=== PATIENT | male | born 1955 | race Caucasian/White ===

== ENCOUNTER → 2016-08-09 | Outpatient (CLI) | payer BC ==
[2016-08-09 07:58] LABS: BASO % 0.6 % (0.0-1.0); EOS # 0.2 K/mm3 (0.0-0.50); EOS % 3.7 % (0.0-3.0); LARGE UNSTAINED CELL # 0.2 K/mm3 (0.0-0.4); LARGE UNSTAINED CELL % 2.6 % (0.0-4.0); LYMPH # 1.1 K/mm3 (1.5-4.5); LYMPH % 18.6 % (24.0-44.0); MEAN CORPUSCULAR HEMOGLOBIN 31.6 pg (27.0-33.0); MEAN CORPUSCULAR HGB CONC 34.9 g/dl (32.0-36.5); MEAN CORPUSCULAR VOLUME 90.5 fl (80.0-96.0); MONO # 0.4 K/mm3 (0.0-0.8); MONO % 6.3 % (0.0-5.0); NEUTROPHILS # 3.9 K/mm3 (1.8-7.7); NEUTROPHILS % 68.2 % (36.0-66.0); PLATELET COUNT, AUTOMATED 201 k/mm3 (150-450); RED CELL DISTRIBUTION WIDTH 13.1 % (11.5-14.5); WHITE BLOOD COUNT 5.7 K/mm3 (4.0-10.0)
[2016-08-09 08:24] LABS: ALBUMIN 3.8 GM/DL (3.2-5.2); ALBUMIN/GLOBULIN RATIO 1.31 (1.00-1.93); ALKALINE PHOSPHATASE 61 U/L (45-117); ALT/SGPT 41 U/L (12-78); ANION GAP 7 MEQ/L (8-16); AST/SGOT 27 U/L (15-37); BILIRUBIN,TOTAL 1.4 MG/DL (0.2-1.0); BLOOD UREA NITROGEN 16 MG/DL (7-18); CALCIUM LEVEL 8.3 MG/DL (8.5-10.1); CARBON DIOXIDE LEVEL 29 MEQ/L (21-32); CHLORIDE LEVEL 104 MEQ/L (98-107); CHOLESTEROL LEVEL 145 MG/DL (<200); CREATININE FOR GFR 0.94 MG/DL (0.70-1.30); GLOMERULAR FILTRATION RATE > 60.0 (>56); GLUCOSE, FASTING 115 MG/DL (70-105); POTASSIUM SERUM 4.4 MEQ/L (3.5-5.1); SODIUM LEVEL 140 MEQ/L (136-145); TOTAL PROTEIN 6.7 GM/DL (6.4-8.2); TRIGLYCERIDES LEVEL 64 MG/DL (<150)
== END ==
LOC: M LAB 08:00
PROVIDERS: ATTEND Internal Medicine
DX: Z00.00 Encounter for general adult medical examination without abnormal findings (principal); E78.00 Pure hypercholesterolemia, unspecified

== ENCOUNTER → 2017-11-18 | Outpatient (CLI) | payer BC ==
[2017-11-18 09:22] LABS: BASO % 0.6 % (0.0-1.0); EOS # 0.3 10^3/uL (0.0-0.50); EOS % 4.7 % (0.0-3.0); HEMATOCRIT 43.5 % (42.0-52.0); HEMOGLOBIN 15.1 g/dl (13.5-17.5); IMMATURE GRANULOCYTE % 0.5 % (0-3.0); LYMPH # 1.3 10^3/uL (1.5-4.5); LYMPH % 19.9 % (24.0-44.0); MEAN CORPUSCULAR HEMOGLOBIN 31.1 pg (27.0-33.0); MEAN CORPUSCULAR HGB CONC 34.7 g/dl (32.0-36.5); MEAN CORPUSCULAR VOLUME 89.7 fl (80.0-96.0); MONO # 0.5 10^3/uL (0.0-0.8); MONO % 7.8 % (0.0-5.0); NEUTROPHILS # 4.2 10^3/uL (1.8-7.7); NEUTROPHILS % 66.5 % (36.0-66.0); PLATELET COUNT, AUTOMATED 207 10^3/uL (150-450); RED BLOOD COUNT 4.85 10^6/uL (4.30-6.10); WHITE BLOOD COUNT 6.4 10^3/uL (4.0-10.0)
[2017-11-18 09:44] LABS: ALBUMIN 3.8 GM/DL (3.2-5.2); ALBUMIN/GLOBULIN RATIO 1.19 (1.00-1.93); ALKALINE PHOSPHATASE 58 U/L (45-117); ALT/SGPT 38 U/L (12-78); ANION GAP 7 MEQ/L (8-16); AST/SGOT 26 U/L (7-37); BILIRUBIN,TOTAL 1.1 MG/DL (0.2-1.0); BLOOD UREA NITROGEN 16 MG/DL (7-18); CALCIUM LEVEL 8.3 MG/DL (8.8-10.2); CARBON DIOXIDE LEVEL 29 MEQ/L (21-32); CHLORIDE LEVEL 106 MEQ/L (98-107); CREATININE FOR GFR 0.92 MG/DL (0.70-1.30); GLOMERULAR FILTRATION RATE > 60.0 (>49); GLUCOSE, FASTING 106 MG/DL (70-100); POTASSIUM SERUM 4.6 MEQ/L (3.5-5.1); SODIUM LEVEL 142 MEQ/L (136-145)
[2017-11-18 10:15] LABS: ESTIMATED AVERAGE GLUCOSE 103 MG/DL (60-110); HEMOGLOBIN A1c 5.2 %
[2017-11-19 08:06] LABS: PSA ULTRASENSITIVE <0.006 ng/mL (0.000-4.000)
== END ==
LOC: M LAB 07:45
DX: Z00.00 Encounter for general adult medical examination without abnormal findings (principal); R73.09 Other abnormal glucose; Z85.46 Personal history of malignant neoplasm of prostate
CPT/HCPCS: 80053

== ENCOUNTER → 2017-12-23 | Outpatient (CLI) | payer BC ==
[2017-12-23 16:48] LABS: HEPATITIS C VIRUS ABY INDEX < 0.0 INDEX (<0.8)
== END ==
LOC: M LAB 15:09
DX: Z11.59 Encounter for screening for other viral diseases (principal)
CPT/HCPCS: 86803

== ENCOUNTER → 2018-12-19 | Outpatient (CLI) | payer BC ==
[2018-12-19 08:27] LABS: BASO % 0.6 % (0.0-1.0); EOS # 0.2 10^3/uL (0.0-0.50); EOS % 3.7 % (0.0-3.0); HEMATOCRIT 45.5 % (42.0-52.0); HEMOGLOBIN 15.9 g/dl (13.5-17.5); MEAN CORPUSCULAR HEMOGLOBIN 32.1 pg (27.0-33.0); MEAN CORPUSCULAR HGB CONC 34.9 g/dl (32.0-36.5); MEAN CORPUSCULAR VOLUME 91.7 fl (80.0-96.0); MONO # 0.5 10^3/uL (0.0-0.8); MONO % 7.8 % (0.0-5.0); NEUTROPHILS # 4.6 10^3/uL (1.8-7.7); NEUTROPHILS % 71.3 % (36.0-66.0); PLATELET COUNT, AUTOMATED 215 10^3/uL (150-450); RED BLOOD COUNT 4.96 10^6/uL (4.30-6.10); WHITE BLOOD COUNT 6.5 10^3/uL (4.0-10.0)
[2018-12-19 09:01] LABS: ALT/SGPT 48 U/L (12-78); BILIRUBIN,TOTAL 0.8 MG/DL (0.2-1.0); BLOOD UREA NITROGEN 15 MG/DL (7-18); CALCIUM LEVEL 9.1 MG/DL (8.8-10.2); CARBON DIOXIDE LEVEL 30 MEQ/L (21-32); CHLORIDE LEVEL 105 MEQ/L (98-107); CHOLESTEROL LEVEL 177 MG/DL (<200); CREATININE FOR GFR 0.93 MG/DL (0.70-1.30); GLOMERULAR FILTRATION RATE > 60.0 (>49); GLUCOSE, FASTING 117 MG/DL (70-100); HDL CHOLESTEROL 51 MG/DL (>40); LDL CHOLESTEROL 112 MG/DL (<100); NON-HDL-C 126 MG/DL; POTASSIUM SERUM 4.7 MEQ/L (3.5-5.1); SODIUM LEVEL 139 MEQ/L (136-145); TOTAL PROTEIN 7.3 GM/DL (6.4-8.2); TRIGLYCERIDES LEVEL 71 MG/DL (<150)
[2018-12-19 12:31] LABS: FREE T4 0.82 NG/DL (0.76-1.46)
== END ==
LOC: M LAB 07:51
PROVIDERS: ATTEND Internal Medicine
DX: Z00.00 Encounter for general adult medical examination without abnormal findings (principal); E78.00 Pure hypercholesterolemia, unspecified; Z85.46 Personal history of malignant neoplasm of prostate; E03.9 Hypothyroidism, unspecified

== ENCOUNTER → 2019-07-27 | Outpatient (REF) | payer BC | LOC: M LAB REF 16:15 | PROVIDERS: ATTEND Dermatology | DX: D49.2 Neoplasm of unspecified behavior of bone, soft tissue, and skin (principal) ==

== ENCOUNTER 2020-07-13 13:19 | Observation (INO) | payer BC ==
[~2020-07-13] VITALS: Ht 175.3 cm; Wt 113.8 kg
[2020-07-13] MEDS ORDERED: CIAL5TAB PO ×2 (13:28)
[2020-07-13 13:45] LABS: BASO # 0.1 10^3/uL (0.0-0.2); BASO % 0.6 % (0.0-1.0); EOS # 0.3 10^3/uL (0.0-0.5); EOS % 2.8 % (0.0-3.0); HEMATOCRIT 51.4 % (42.0-52.0); HEMOGLOBIN 17.6 g/dl (13.5-17.5); LYMPH % 20.1 % (24.0-44.0); MEAN CORPUSCULAR HEMOGLOBIN 31.8 pg (27.0-33.0); MEAN CORPUSCULAR HGB CONC 34.2 g/dl (32.0-36.5); MEAN CORPUSCULAR VOLUME 92.9 fl (80.0-96.0); MONO % 10.3 % (0.0-5.0); NEUTROPHILS # 6.6 10^3/uL (1.5-8.5); NEUTROPHILS % 65.7 % (36.0-66.0); PLATELET COUNT, AUTOMATED 250 10^3/uL (150-450); RED BLOOD COUNT 5.53 10^6/uL (4.30-6.10)
[2020-07-13] MEDS: METOPROLOL 5 MG/5 ML VIAL IV SCH ×3 (13:45→14:07)
[2020-07-13 13:57] LABS: INR 0.99; PROTHROMBIN TIME 13.3 SECONDS (12.5-14.3)
--- NOTE | 2020-07-13 14:13 | REP ---
INDICATION: CHEST PAIN. COMPARISON: None. TECHNIQUE: SINGLE PORTABLE AP VIEW OF THE CHEST WAS PERFORMED. FINDINGS: THERE IS NO ACUTE INFILTRATE OR PULMONARY EDEMA. LUNGS ARE CLEAR. HEART IS NOT SIGNIFICANTLY ENLARGED. MEDIASTINAL SILHOUETTE IS UNREMARKABLE. THE VISUALIZED OSSEOUS STRUCTURES ARE INTACT. IMPRESSION: NO ACUTE PULMONARY DISEASE. <Electronically signed by Demetrio Peterson > 07/13/20 1919
[2020-07-13] MEDS ORDERED: atenoloL 50 MG TAB PO ONE (14:15)
[2020-07-13] MEDS ORDERED: APIXABAN 5 MG TAB (ELIQUIS) PO ONE (14:15)
[2020-07-13 14:16] VITALS: BP 152/90
[2020-07-13 14:20] LABS: BILIRUBIN,DIRECT 0.4 MG/DL (0.0-0.2); BILIRUBIN,TOTAL 1.4 MG/DL (0.2-1.0); FREE T4 0.88 NG/DL (0.76-1.46); THYROID STIMULATING HORMONE 5.04 uIU/ML (0.358-3.740); TOTAL PROTEIN 7.6 GM/DL (6.4-8.2)
[2020-07-13] MEDS ORDERED: NS 500 ML IV ONE (17:00)
--- NOTE | 2020-07-13 17:11 | ECGEPIP ---
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
[2020-07-13] MEDS ORDERED: ELIQ5TAB PO (18:20)
[2020-07-13] MEDS ORDERED: ATEN50TA2 PO (18:21)
[2020-07-13] MEDS ORDERED: IBUP80TA PO (19:17)
[2020-07-13 20:08] LABS: RSV AMPLIFICATION NEGATIVE (NEGATIVE)
[2020-07-13] MEDS ORDERED: MAALOX 30 ML SUSP *UDC PO PRN (20:30)
[2020-07-13] MEDS ORDERED: ACETAMINOPHEN TAB 650MG DOSE (2X325MG) PO PRN (20:30)
--- NOTE | 2020-07-13 20:39 | HPEPDOC ---
General Date of Admission Date of Service: Jul 13, 2020 Primary Care Physician: Jr Johnson Collins Attending Physician: Curly Juárez MD Chief Complaint The patient is a 64-year-old male admitted with a reason for visit of Palpitations. Source: Patient Exam Limitations: No limitations History of Present Illness Mr. Darby has been feeling well recently. At about 4 AM today he woke and noticed palpitations. Throughout the morning he had a vague discomfort in his chest, but doesn't describe it as chest pain. He watched pentecostalism online in the late morning and then felt that he was tired and if he needed to rest, which is unusual for him. When he laid down he felt uncomfortable and disorientation almost pounding sensation in his head. At that point he decided he needed to come to the emergency department for further care. In the emergency department he was found to be in afib with RVR with a heart rate in the [id number]. His rate was controlled with a total of 12.5 mg of Lopressor IV. He was started on atenolol 50 mg once daily. At that point in time the plan was for him to be discharged with short outpatient follow-up with cardiology. A repeat troponin and EKG were done. The troponin remained negative, however, the repeat EKG showed inverted T waves in leads V5 and 6 when compared to the one done just hours earlier. As a result of this change, the decision was made to admit him for observation, continue telemetry, complete anticoagulation, and follow a third troponin. Dr. Elam should be by to see him in the morning. Home Medications Scheduled Tadalafil (Cialis) 5 Mg Tablet, 5 MG PO 3XW, (Reported) MON,WED,FRI Scheduled PRN Ibuprofen (Ibuprofen) 800 Mg Tablet, 800 MG PO Q6H PRN for PAIN, (Reported) Allergies Coded Allergies: Penicillins (Verified Allergy, Unknown, 07/13/20) Past Medical History Medical History h/o prostate cancer (2009) Surgical History Orthopedic repair of tibia-fibula, right elbow, and rodding of femur (1972) Vasectomy (1991) Robotic prostatectomy (2009) Family History His father at 78 years old but not much is known about his history. His mother at 64 years old of lung cancer. He has one brother who recently had a CVA. Has 3 sisters one of whom has had breast cancer and two who have diabetes. He has 4 children - 2 sons and 2 daughters - who have no known medical problems. Social History * Smoker: former Smoker (quit around 1979) Alcohol: other (reports that he has one or 2 drinks per night) Drugs: denies He lives with his and they have all he needs on one floor. Additionally their home has an elevator if necessary to move between floors. A-FIB/CHADSVASC A-FIB History Current/History of A-Fib/PAF?: Yes Current PO Anticoag Therapy: Yes Review of Systems Constitutional: Denies: Chills, Fever Pulmonary: Denies: Dyspnea, Cough Cardiovascular: Reports: Palpitations, Lt Headedness (sense of vertigo or rocking of his head associated with palpitations), Other Symptoms (vague sense of chest discomfort); Denies: Edema Gastrointestinal: Denies: Nausea, Vomiting Neurological: Reports: Other Symptoms; Denies: Weakness, Numbness, Change in speech, Confusion Psych: Reports: Mood Normal Physical Examination General Exam: Positive: Alert, Cooperative, No Acute Distress (laying in the ER stretcher when I entered the room) Eye Exam: Positive: Conjunctiva & lids normal; Negative: Sclera icteric ENT Exam: Positive: Atraumatic, Mucous membr. moist/pink Neck Exam: Positive: Supple; Negative: Lymphadenopathy Chest Exam: Positive: Clear to auscultation, Normal air movement Heart Exam: Positive: Rate Normal, Irregular Rhythm, Normal S1, Normal S2; Negative: Murmurs, Rubs Telemetry: Positive: Atrial fibrillation Abdomen Exam: Positive: Normal bowel sounds, Soft; Negative: Tenderness, Hepatospenomegaly Extremity Exam: Negative: Edema Skin Exam: Positive: Nl turgor and temperature Neuro Exam: Positive: Normal Speech, Normal Tone Psych Exam: Positive: Mental status NL, Mood NL, Oriented x 3 Vital Signs Vital Signs Date Time Temp Pulse Resp B/P (MAP) Pulse Ox O2 Delivery O2 Flow Rate FiO2 07/13/20 19:00 84 98 07/13/20 18:45 136/71 (92) 07/13/20 13:20 98.0 18 Room Air Laboratory Data Labs 24H Laboratory Tests 2 07/13/20 13:34: Immature Granulocyte % (Auto) 0.5, Neutrophils (%) (Auto) 65.7, Lymphocytes (%) (Auto) 20.1L, Monocytes (%) (Auto) 10.3H, Eosinophils (%) (Auto) 2.8, Basophils (%) (Auto) 0.6, Neutrophils # (Auto) 6.6, Lymphocytes # (Auto) 2.0, Monocytes # (Auto) 1.0H, Eosinophils # (Auto) 0.3, Basophils # (Auto) 0.1, Nucleated Red Blood Cells % (auto) 0.0, Prothrombin Time 13.3, Prothromb Time International Ratio 0.99, Activated Partial Thromboplast Time 28.0, Total Bilirubin 1.4H, Direct Bilirubin 0.4H, Aspartate Amino Transf (AST/SGOT) 28, Alanine Aminotransferase (ALT/SGPT) 42, Alkaline Phosphatase 64, Total Protein 7.6, Albumin 4.0, Albumin/Globulin Ratio 1.1, Lipase 160, Thyroid Stimulating Hormone (TSH) 5.040H, Free Thyroxine 0.88 07/13/20 13:36: POC Glucose (Misc Panel) 116H, POC Sodium (Misc Panel) 142, POC Potassium (Misc Panel) 4.4, POC Chloride (Misc Panel) 104, POC Total CO2 (Misc Panel) 30.0H, POC Blood Urea Nitrogen (Misc Panel 24, POC Ionized Calcium (Misc Panel) 5.1, POC Creatinine (Misc Panel) 1.0, POC Hematocrit (Misc Panel) 52.0H 07/13/20 13:39: POC Troponin I (Misc) 0.03 07/13/20 16:56: Bedside Glucose (Misc Panel) 92 07/13/20 18:41: POC Troponin I (Misc) 0.03 07/13/20 19:16: Coronavirus (COVID-19)(PCR) NEGATIVE, Influenza Type A (RT-PCR) NEGATIVE, Influenza Type B (RT-PCR) NEGATIVE, Respiratory Syncytial Virus (PCR) NEGATIVE CBC/BMP Laboratory Tests 07/13/20 13:34 Problems (1) Atrial fibrillation with rapid ventricular response Status: Acute Problem Specific Plan: Monitor Clinically, Repeat Labs Problem Text: He is currently rate controlled on atenolol 50mg. The hope is that he will spontaneously convert back to sinus rhythm. Will start Eliquis 5 mg bid for anticoagulation. Dr. Elam will be in to see him tomorrow and may have some other suggestions regarding rhythm control if he hasn't converted by then. (2) Abnormal ECG Status: Acute Problem Text: He has LVH and on a repeat EKG had T-wave inversions in V5 and V6. As far as we are aware this is new. I have ordered an echocardiogram to further characterize the structural changes. (3) Sleep apnea syndrome Problem Text: He does NOT carry a diagnosis of ARTURO, however, his STOPBANG is 5 (high risk) and he has several other changes that support a dx of ARTURO including: polycythemia which could be due to chronic hypoxia, LVH without a dx of HTN, and new onset atrial fibrillation. I think that we should work him up for this either here or when he is discharged. (4) Polycythemia Problem Text: This is a new finding and higher than his usual baseline Hb of 15. I suspect is is 2/2 hypoxemia from undiagnosed ARTURO, but if this is not the case, then this may need further evaluation too. I will defer any hematologic evaluation until after the ARTURO question is answered. (5) Elevated bilirubin Status: Chronic Problem Text: This seems to be a longstanding issue with a baseline tbili around 1.3. He was unaware that his bilirubin runs high. It is likely something benign like Gilbert's syndrome, but I recommended he bring it up with his physi gerald when he sees him for the hospital follow-up. Plan / VTE VTE Prophylaxis Ordered?: Yes (Eliquis) Plan Advanced Directives: Health Care Proxy (HCP) (he verbally identifies his , Mariah Ng , as his alternate medical decision-maker if he was unable to make his own medical decisions) Curly Juárez MD Jul 13, 2020 20:39
[2020-07-13 21:20] VITALS: BP 131/84
[2020-07-13] MEDS: APIXABAN 2.5 MG TAB (ELIQUIS) PO SCH (21:41)
[2020-07-14] VITALS: BP 117/61
[2020-07-14 04:00] VITALS: BP 125/58
[2020-07-14 04:26] LABS: HEMATOCRIT 46.7 % (42.0-52.0); HEMOGLOBIN 15.7 g/dl (13.5-17.5); MEAN CORPUSCULAR HEMOGLOBIN 31.3 pg (27.0-33.0); MEAN CORPUSCULAR HGB CONC 33.6 g/dl (32.0-36.5); PLATELET COUNT, AUTOMATED 235 10^3/uL (150-450); RED BLOOD COUNT 5.02 10^6/uL (4.30-6.10); WHITE BLOOD COUNT 10.7 10^3/uL (4.0-10.0)
[2020-07-14 05:06] LABS: ALBUMIN 3.4 GM/DL (3.2-5.2); ALT/SGPT 34 U/L (12-78); BILIRUBIN,TOTAL 1.1 MG/DL (0.2-1.0); BLOOD UREA NITROGEN 21 MG/DL (7-18); CALCIUM LEVEL 8.7 MG/DL (8.8-10.2); CARBON DIOXIDE LEVEL 28 MEQ/L (21-32); CHLORIDE LEVEL 107 MEQ/L (98-107); CREATININE FOR GFR 1.02 MG/DL (0.70-1.30); GLOMERULAR FILTRATION RATE > 60.0 (>49); GLUCOSE, FASTING 101 MG/DL (70-100); SODIUM LEVEL 140 MEQ/L (136-145); TOTAL PROTEIN 6.5 GM/DL (6.4-8.2); TROPONIN I 0.02 NG/ML (< 0.10)
[2020-07-14 07:41] VITALS: BP 147/74
[2020-07-14] MEDS ORDERED: ELIQ2.5T PO (08:40)
[2020-07-14] MEDS ORDERED: ATEN25TA PO ×2 (08:40→09:08)
[2020-07-14] MEDS ORDERED: atenoloL 25 MG TAB PO SCH (09:00)
[2020-07-14] MEDS: APIXABAN 2.5 MG TAB (ELIQUIS) PO SCH (09:49)
--- NOTE | 2020-07-14 11:15 | CR ---
CONSULTATION DATE: 07/14/2020 REFERRING PHYSICIAN: Curly Juárez M.D. PRINCIPAL COMPLAINT: Atrial fibrillation. HISTORY OF PRESENT ILLNESS: is a 64-year-old man who presented to [facility] ER yesterday afternoon with sensation of palpitations and poorly described chest discomfort. The sensation started approximately 4 a.m. He was woken up from sleep and felt that his left upper sternum felt a little unusual. He says that he would not describe the sensation of a pain or palpitations. He did not pay too much attention and went back to bed and was able to fall asleep but when he woke up around 6 a.m., he still had a mild sensation of discomfort that lingered throughout the morning and eventually he felt extremely tired and laid down and as he lay down, he felt a pulsating sensation in his neck and head and decided to come to emergency room for further evaluation. He was found to be in atrial fibrillation with ventricular rate reaching up to 150 beats per minute. There were nonspecific repolarization abnormalities suggestive of LVH. He was given a total of 15 mg of IV metoprolol and 50 mg of oral atenolol that led to marked improvement in his heart rate and he eventually converted to sinus rhythm around 10:30 yesterday evening and has remained in mostly sinus bradycardia since. He says that during the day yesterday each time when his heart rate accelerated, he felt a mild sensation in his left upper chest as the night before but has not had any problems since his cardioversion. He is feeling well this morning. He has had already several EKGs. The initial one was described above but follow-up EKGs revealed evidence for new T wave inversions in lead V4 to V6 together with some minimal elevation in precordial leads and eventually this morning, the T wave inversions are quite prominent. An echocardiogram performed at bedside reveals preserved left ventricular systolic function with moderate left ventricular hypertrophy and no significant valvular disease. PAST MEDICAL HISTORY: 1. History of prostate cancer in 2009, status post prostatectomy. 2. The patient denies history of diabetes, dyslipidemia or arterial hypertension. SURGICAL HISTORY: Positive for vasectomy, robotic prostatectomy and femoral, tibial and elbow repair in distant past. FAMILY HISTORY: The patient denies any history of coronary artery disease or congestive heart failure in first degree relatives. His older brother apparently recently suffered stroke but he does not have any detailed information. SOCIAL HISTORY: The patient is . He is father of four. 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 He has a very remote history of brief smoking and he typically has a couple drinks a night. REVIEW OF SYSTEMS: There is no history of recent headache, fever, chills, nausea, vomiting or diarrhea. He does report that he had COVID vaccination approximately 10 days ago and he may have noted similar sensation of palpitations briefly since on a couple occasions. No history of chest pain. At his baseline, he is quite active and in general reports good exertional tolerance. PHYSICAL EXAMINATION: Mr. Ng is a 64-year-old man who appears approximately his age sitting in a chair in no distress, pleasant, oriented, provides good history. Vital signs this morning: Blood pressure 147/74, afebrile, saturation 95% on room air, heart rate in the 50s and 60s. It was in the low 60s when I saw him. Weight was recorded at 114 kilograms. He is alert and oriented, appropriate. His JVP is not high, no carotid bruit. Lungs are clear. Heart exam reveals regular rhythm without gallops, murmur or rub. Abdomen is obese but soft. Extremities are free of edema. Peripheral pulses are of good quality. LABORATORY DATA: As of this morning, CBC is essentially normal. Basic metabolic panel is also normal but for fasting glucose 101. He has normal liver function test and TSH was 5.0. EKGs: As per history of present illness. Chest x-ray reveals a borderline cardiomegaly but otherwise is unremarkable. ASSESSMENT AND PLAN: Mr. Ng is a 64-year-old man without significant past medical history who presented with atrial fibrillation with rapid ventricular response and spontaneously converted to sinus rhythm approximately 16 hours after onset of atrial fibrillation. He has been in sinus rhythm since. There is no obvious trigger. Even though he had some alcohol, it was not very much and he has had steady alcohol consumption in the similar range for a long time. He also may have underlying ARTURO and we will pursue evaluation in that regard. The most worrisome finding is the abnormality on EKG and left ventricular hypertrophy. Surprisingly, he does not carry a history of hypertension. He also does not carry any family history of cardiovascular disease. We will have to evaluate him for underlying CAD and I plan to pursue a nuclear stress test later this week. I will also make referral to evaluate for ARTURO but currently I believe he is safe to be discharged home. His cardiac enzymes remain negative and he ambulates without difficulty. I do not believe there is any reason to keep him in the hospital any longer. I suggested that he takes a couple days off which he believes that he can do. Otherwise, I do not have any obvious restrictions but I also recommended that he avoids alcohol for the near future and I would also recommend anticoagulation at least for a couple three months. Thomas Johnson M.D.
--- NOTE | 2020-07-14 11:15 | CR ---
CONSULTATION DATE: 07/14/2020 REASON FOR CONSULTATION: I was asked by Dr. Elam to attend Mr. Ng. He was admitted yesterday with atrial fibrillation with RVR new onset. HISTORY OF PRESENT ILLNESS: Further history taken reveals that he quite likely has obstructive sleep apnea syndrome and we are asked to become involved in his care. He is currently in normal sinus rhythm after converting. He is feeling much better. He reports a very long history of snoring with irregular patterns noticed by his . He denies any excessive daytime somnolence or fatigue. No clear-cut hypnagogic/hypnopompic hallucinations, sleep paralysis, or cataplexy. ALLERGIES: Listed as PENICILLINS. MEDICATIONS AT HOME: Cialis with p.r.n. Ibuprofen. PAST MEDICAL HISTORY: Significant for history of prostate cancer 2009. SURGICAL HISTORY: Robotic prostatectomy, vasectomy, and orthopedic repair of a femur fracture in the . SOCIAL HISTORY: Lives and works here in the [facility]. Remote tobacco. Social alcohol at best. Lives at home with supportive . FAMILY HISTORY: Father in his 70s. Mother in her 60s of lung cancer. Brother with atherosclerotic cerebrovascular disease, a sister with breast cancer, also sister with diabetes. REVIEW OF SYSTEMS: Constitutional negative for recent fevers or chills. HEENT unremarkable for double or blurry vision. Pulmonary is unremarkable for any asthma or obstructive lung disease. Cardiac significant for atrial fibrillation with RVR. Hematologic unremarkable for bruising or bleeding. Dermatologic unremarkable for rashes. Musculoskeletal unremarkable for any new arthralgias, myalgias. Endocrine unremarkable for diabetes, thyroid disease. He does have a history of prostatectomy. Psychiatric unremarkable. PHYSICAL EXAMINATION: GENERAL: He is a pleasant well nourished, well developed gentleman in no distress. VITAL SIGNS: Heart rate in the 60s. Blood pressure 148 systolic, respiratory rate 18 and unlabored. He is afebrile. HEENT: Otherwise normocephalic, atraumatic. Pupils react. Neck is supple without any obvious adenopathy. No obvious JVD. Airway is not seen due to his mask. Trachea is in the midline. CHEST: Clear to both auscultation and percussion. No retraction noted. No focal adventitious breath sounds are identified. Tactile fremitus palpable throughout. CARDIAC EXAM: Regular with no murmur or gallop. Peripheral pulses are palpable, no edema. ABDOMEN: Soft with active bowel sounds. EXTREMITIES: No cyanosis or clubbing. NEUROLOGIC: Neurologically he is awake, alert, and appropriate. PSYCHIATRIC: He has a normal mood and affect. Pulse oximetry 95% on room air. IMPRESSION: 1. Snoring. 2. Atrial fibrillation with rapid ventricular response (RVR). 3. History of prostate cancer. RECOMMENDATIONS: At this point he quite likely has underlying obstructive sleep apnea syndrome. We had a long discussion regarding goals of therapy, the workup and how this is treated. He conveys understanding. If able to be done through insurance, he would prefer home testing on an auto-titratable device and I believe this able to be done for him and we will pursue that as soon as possible. He will be followed for this in the outpatient setting. MARIO
--- NOTE | 2020-07-14 15:42 | DS.PDOC ---
Discharge Summary General Date of Admission Jul 13, 2020 at 20:52 Date of Discharge 07/14/20 Specialist/Consultants Involve cardiology, pulmonology Discharge Summary PROCEDURES PERFORMED DURING STAY: [None]. ADMITTING DIAGNOSES: #afib with RVR DISCHARGE DIAGNOSES: #afib/RVR - converted to NSR #abnormal ECG #possible ARTURO SECONDARY DIAGNOSES #prostate CA s/p robotic prostatectomy, vasectomy #femoral fracture s/p repair COMPLICATIONS/CHIEF COMPLAINT: Atrial Fibrillation With Rvr. HPI/Hospital Course: 64-year-old male who presents to [facility] in the afternoon for sensation of palpitations and chest discomfort. He states he woke up at around 4 AM because of palpitations and his chest discomfort. He states the night before was a typical evening for him. He went back to sleep, waking up again a few hours later with the same sensation of discomfort in his chest. He attended an [place] service and as the day progressed, his chest discomfort continued, prompting him to present to the emergency department. In the ED he was found to be in atrial fibrillation with rapid ventricular rate. He continued to experience chest discomfort with palpitations. He was given 15 mg of IV metoprolol and 50 mg of oral atenolol with excellent response, eventually converting back to sinus rhythm in the late evening. Since then he has been essentially sinus bradycardia. Several EKGs were obtained showing new T-wave inversions in lead V4 to V6 with minimal elevations in the precordial leads. An echocardiogram was obtained showing moderate left ventricular hypertro phy. He was seen in consultation by cardiology and pulmonology on extensive discussion with cardiology, he was deemed safe for discharge home with outpatient follow-up. He is being provided with atenolol, that can be taken as needed as per any sensations of palpitations, elevated blood pressure and tachycardia. He is planned to have a nuclear stress test done this Tuesday with Dr. Elam. He has been set up for a home sleep study test [facility]. He was advised to rest for at least the next couple of days. While he was receiving his discharge instructions, he had 4 beats of VT, and remained asymptomatic, with stable vital signs. His electrolytes were checked and were within normal limits. He was encouraged to ambulate, and no further abnormalities were seen on telemetry. Discussed with cardiology. Discussed with his PCP as well. DISCHARGE MEDICATIONS: Please see below. ALLERGIES: Please see below. PHYSICAL EXAMINATION ON DISCHARGE: VITAL SIGNS: Please see below. GENERAL: pleasant, NAD, sitting comfortably in chair HEENT: NC/AT, EOMI Lungs: CTA B/L Heart: +S1S2, RRR Ext: no edema LABORATORY DATA: Please see below. ACTIVITY: [As tolerated]. DISPOSITION: 01 Home, Self-Care. DISCHARGE INSTRUCTIONS: 1. PCP in 3-5 days 2. Cardiology as scheduled 07/18/20 3. Pulmonology for results of sleep study 4. Rest for at least 2-3 days. 5. Medications as directed. DISCHARGE CONDITION: [Stable]. TIME SPENT ON DISCHARGE: 35 minutes. Vital Signs/I&Os Vital Signs Date Time Temp Pulse Resp B/P (MAP) Pulse Ox O2 Delivery O2 Flow Rate FiO2 07/14/20 07:41 97.9 65 18 147/74 (98) 95 Room Air I&O- Last 24 Hours up to 6 AM 07/14/20 06:00 Intake Total 850 ml Output Total 0 ml Balance 850 ml Laboratory Data Labs 24H Laboratory Tests 2 07/13/20 16:56: Bedside Glucose (Misc Panel) 92 07/13/20 18:41: POC Troponin I (Misc) 0.03 07/13/20 19:16: Coronavirus (COVID-19)(PCR) NEGATIVE, Influenza Type A (RT-PCR) NEGATIVE, Influenza Type B (RT-PCR) NEGATIVE, Respiratory Syncytial Virus (PCR) NEGATIVE 07/14/20 03:53: Nucleated Red Blood Cells % (auto) 0.0, Anion Gap 5L, Glomerular Filtration Rate > 60.0, Calcium Level 8.7L, Magnesium Level 2.0, Total Bilirubin 1.1H, Aspartate Amino Transf (AST/SGOT) 21, Alanine Aminotransferase (ALT/SGPT) 34, Alkaline Phosphatase 56, Troponin I 0.02, Total Protein 6.5, Albumin 3.4, Albumin/Globulin Ratio 1.1 CBC/BMP Laboratory Tests 07/14/20 03:53 FSBS Laboratory Tests Test 07/13/20 16:56 Range/Units Bedside Glucose (Misc Panel) 92 80-115 MG/DL Discharge Medications Scheduled Apixaban (Eliquis) 2.5 Mg Tablet, 5 MG PO BID Atenolol (Atenolol) 25 Mg Tablet, 50 MG PO DAILY Take 1-2 tablets, as discussed, once daily, as needed for elevated blood pressure, palpitations, tachycardia. Tadalafil (Cialis) 5 Mg Tablet, 5 MG PO 3XW, (Reported) TUE,TUE,TUE Allergies Coded Allergies: Penicillins (Verified Allergy, Unknown, 07/13/20) THERESE ARMENDARIZ MD Jul 14, 2020 15:42
--- NOTE | 2020-07-15 07:49 | ECGEPIP ---
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
--- NOTE | 2020-07-15 07:54 | ECGEPIP ---
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
--- NOTE | 2020-07-15 08:39 | ECGEPIP ---
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
--- NOTE | 2020-07-15 14:49 | ECHO ---
DATE OF PROCEDURE: 07/14/2020 Age: 64 Gender: Male Height: 175 cm Weight: 114 kg REFERRING PHYSICIAN: Dr. Curly Juárez. INDICATION: Atrial fibrillation, abnormal EKG. MEASUREMENTS: IVS 1.5 cm LV 5.4 cm LVPW 1.3 cm LA 4.4 cm Aorta 2.9 cm RV 3.3 cm IVC 1.7 cm Mitral E wave velocity 68 A wave 42 E prime septal 6.4 E prime lateral 5.1 FINDINGS: This study is of acceptable technical quality. Underlying sinus rhythm. Left ventricle is a normal size. Moderate left ventricular hypertrophy is noted. Overall estimated LVEF approximately 65-70%, I do not appreciate any segmental wall motion abnormality. Right ventricle is also normal size and systolic function. Left atrium is mildly enlarged. Right atrium appears normal. All four cardiac valves were well seen and appear normal. No pericardial effusion is noted. Inferior vena cava is a normal size and appropriately collapses with inspiration indicative of normal central venous pressure. Aortic root, aortic arch, and visualized segment of abdominal aorta all appear normal. Doppler interrogation reveals competent all four cardiac valves without significant stenosis or insufficiency. Mitral inflow patter on tissue Doppler imaging of mitral annulus revealed grade 2 diastolic dysfunction. CONCLUSIONS: 1. Study is of acceptable technical quality, underlying sinus rhythm. 2. Normal LV size with moderate left ventricular hypertrophy, estimated LVEF 65-70% and grade 2 diastolic dysfunction. 3. No significant valvular disease. 4. Normal central venous pressure. 5. Unable to estimate pulmonary artery pressure but no signs to suggest pulmonary hypertension. COMMENT: Overall study most consistent with hypertensive heart disease. MTDD
== END 2020-07-14 12:06 | disposition home or self-care (01) ==
LOC: M ED 13:19 → M ED INP 20:52 → ENRESERV 21:08 → M PCU 21:18
PROVIDERS: ADMIT Family Medicine; ATTEND Family Medicine
DX: I48.91 Unspecified atrial fibrillation (principal); R94.31 Abnormal electrocardiogram [ECG] [EKG]; G47.30 Sleep apnea, unspecified; Z85.46 Personal history of malignant neoplasm of prostate; Z79.01 Long term (current) use of anticoagulants; Z79.899 Other long term (current) drug therapy; Z88.0 Allergy status to penicillin; D75.1 Secondary polycythemia; E80.7 Disorder of bilirubin metabolism, unspecified; Z87.891 Personal history of nicotine dependence

== ENCOUNTER → 2020-07-15 | Outpatient (CLI) | payer BC ==
[~2020-07-15] MED LIST: ATEN25TA PO; ATEN50TA2 PO; CIAL5TAB PO; ELIQ2.5T PO; ELIQ5TAB PO; IBUP80TA PO
--- NOTE | 2020-07-16 12:56 | SLEEPHOME ---
DATE: 07/14/2020 ORDERED BY: Dr. Witt Diagnostic home sleep testing was performed due to concern for the obstructive sleep apnea syndrome in this patient with snoring and nonrestorative sleep. For testing, a nocturnal T3 respiratory monitoring device was used. Continuous record was made of pulse, oxygen saturation, air flow, chest and abdominal strain, and body position. There was 9 hours and 59 minutes of data reviewed. There was 7 hours and 2 minutes marked as time in bed. During the interval marked time in bed, there were 470 respiratory events identified of 10 seconds in duration or greater for a respiratory event index of 66.8. The events were primarily obstructive. Eighteen mixed and 19 central apneas were also noted. Baseline pulse rate was 63 beats per minute. Pulse rate ranged 50-87. Baseline saturation 93%. Saturations fell to 69%. Testing was performed in both the supine and nonsupine positions. IMPRESSION: Abnormal home sleep testing with repetitive respiratory events and oxygen desaturations to 69% with a respiratory event index of 66.8 is consistent with the obstructive sleep apnea syndrome. RECOMMENDATION: The patient should be encouraged to undergo formal sleep evaluation. Given the frequency of mixed and central apneas in laboratory titration, a bilevel device and backup rate may be found necessary.
== END ==
LOC: M SLEEP HO 10:00
PROVIDERS: ATTEND Internal Medicine Pulmonary Disease
DX: R06.83 Snoring (principal)

== ENCOUNTER → 2020-08-09 | Outpatient (CLI) | payer BC ==
--- NOTE | 2020-08-11 14:32 | SLEEPCENT ---
NOCTURNAL POLYSOMNOGRAPHY DATE: 08/09/2020 ORDERED BY: Flako Witt M.D. Nocturnal polysomnography was performed for the titration of pressure therapy in this patient with obstructive sleep apnea syndrome confirmed by home testing, revealing respiratory event index of 66.8. For testing a ResMed AirFit F30 full face mask of medium size was used, 4 cm of water pressure were applied to the circuit, and the lights were extinguished. 7 hours and 53 minutes of data were reviewed. There were 182 minutes of sleep identified. Sleep latency was normal at 14 minutes. REM sleep was delayed at 223 minutes. Sleep architecture showed poor progression early in the study. There were two REM cycles, however, and overall sleep efficiency was 41.3%. The electrocardiogram showed a sinus rhythm with an average heart rate of 58 beats per minute; rate range 48 to 82. EEG showed normal waveforms for wake and sleep stages. Respiratory events prompted increases in CPAP pressure. Best sleep was seen late in the study on a CPAP pressure of +9. There was one episode of limb activity. Limb movement arousal index was 4. IMPRESSION: Obstructive sleep apnea syndrome (G47.33). RECOMMENDATION: Nightly use of pressure therapy 9 cm of water. Thomas Johnson Jr., M.D.
== END ==
LOC: M SLEEP 20:00
PROVIDERS: ATTEND Internal Medicine Pulmonary Disease
DX: G47.33 Obstructive sleep apnea (adult) (pediatric) (principal)

== ENCOUNTER → 2020-11-24 | Outpatient (CLI) | payer BC ==
[2020-11-24 08:51] LABS: BASO # 0.1 10^3/uL (0.0-0.2); BASO % 0.7 % (0.0-1.0); EOS # 0.3 10^3/uL (0.0-0.5); EOS % 4.8 % (0.0-3.0); HEMATOCRIT 44.1 % (42.0-52.0); HEMOGLOBIN 14.9 g/dl (13.5-17.5); LYMPH # 1.5 10^3/uL (1.5-5.0); LYMPH % 21.6 % (24.0-44.0); MEAN CORPUSCULAR HEMOGLOBIN 31.6 pg (27.0-33.0); MEAN CORPUSCULAR HGB CONC 33.8 g/dl (32.0-36.5); MEAN CORPUSCULAR VOLUME 93.4 fl (80.0-96.0); MONO # 0.7 10^3/uL (0.0-0.8); MONO % 10.5 % (2.0-8.0); NEUTROPHILS # 4.2 10^3/uL (1.5-8.5); NEUTROPHILS % 61.7 % (36.0-66.0); PLATELET COUNT, AUTOMATED 227 10^3/uL (150-450); RED BLOOD COUNT 4.72 10^6/uL (4.30-6.10); WHITE BLOOD COUNT 6.9 10^3/uL (4.0-10.0)
[2020-11-24 09:29] LABS: BLOOD UREA NITROGEN 13 MG/DL (7-18); CALCIUM LEVEL 8.8 MG/DL (8.8-10.2); CARBON DIOXIDE LEVEL 29 MEQ/L (21-32); CHLORIDE LEVEL 103 MEQ/L (98-107); FREE T4 0.92 NG/DL (0.76-1.46); GLOMERULAR FILTRATION RATE > 60.0 (>49); GLUCOSE, FASTING 105 MG/DL (70-100); POTASSIUM SERUM 4.7 MEQ/L (3.5-5.1); SODIUM LEVEL 136 MEQ/L (136-145)
== END ==
LOC: M LAB 07:40
PROVIDERS: ATTEND Internal Medicine
DX: Z00.01 Encounter for general adult medical examination with abnormal findings (principal); E03.9 Hypothyroidism, unspecified

== ENCOUNTER → 2021-01-16 | Outpatient (REF) | LOC: M EMP 15:32 | PROVIDERS: ATTEND Family Medicine | DX: Z11.52 Encounter for screening for COVID-19 (principal) ==

== ENCOUNTER → 2021-01-22 | Outpatient (REF) | LOC: M EMP 11:07 | PROVIDERS: ATTEND Family Medicine | DX: Z11.52 Encounter for screening for COVID-19 (principal) ==

== ENCOUNTER → 2021-03-16 | Outpatient (CLI) | payer BC ==
[~2021-03-16] MED LIST changes: +ASPI81TA26 PO; +LISI20TA33 PO
== END ==
LOC: M LABSMTC 10:28
PROVIDERS: ATTEND Anesthesiology
DX: Z01.818 Encounter for other preprocedural examination (principal); Z11.52 Encounter for screening for COVID-19

== ENCOUNTER 2021-03-20 08:18 | Day surgery (SDC) | payer BC ==
[~2021-03-20] VITALS: Ht 180.3 cm; Wt 108.0 kg
[~2021-03-20 08:18] MED LIST changes: +NS 1,000 ML IV ONE
--- OUTSIDE RECORDS SUMMARY | 2021-03-20 08:22 | CCD ---
Author Author [facility] Organization [facility] Address Unknown Phone Unavailable Care Team Providers Care [place] Name Role Phone Tomás Alfaro MD Unavailable Unavailable Tomás Alfaro MD Unavailable Unavailable Tomás Alfaro MD Unavailable Unavailable Tomás Alfaro MD Unavailable Unavailable Tomás Alfaro MD Unavailable Unavailable Tomás Alfaro MD Unavailable Unavailable Tomás Alfaro MD Unavailable Unavailable Tomás Alfaro MD Unavailable Unavailable Tomás Alfaro MD Unavailable Unavailable Tomás Alfaro MD Unavailable Unavailable Tomás Alfaro MD Unavailable Unavailable Tomás Alfaro MD Unavailable Unavailable Tomás Alfaro MD Unavailable Unavailable Tomás Alfaro MD Unavailable Unavailable Tomás Alfaro MD Unavailable Unavailable Tomás Alfaro MD Unavailable Unavailable Tomás Alfaro MD Unavailable Unavailable Tomás Alfaro MD Unavailable Unavailable Tomás Alfaro MD Unavailable Unavailable Tomás Alfaro MD Unavailable Unavailable Tomás Alfaro MD Unavailable Unavailable Tomás Alfaro MD Unavailable Unavailable Tomás Alfaro MD Unavailable Unavailable Tomás Alfaro MD Unavailable Unavailable Tomás Alfaro MD Unavailable Unavailable Tomás Alfaro MD Unavailable Unavailable Tomás Alfaro MD Unavailable Unavailable Tomás Alfaro MD Unavailable Unavailable Tomás Alfaro MD Unavailable Unavailable Tomás Alfaro MD Unavailable Unavailable Tomás Alfaro MD Unavailable Unavailable Tomás Alfaro MD Unavailable Unavailable Tomás Alfaro MD Unavailable Unavailable Tomás Alfaro MD Unavailable Unavailable Tomás Alfaro MD Unavailable Unavailable Tomás Alfaro MD Unavailable Unavailable Tomás Alfaro MD Unavailable Unavailable Tomás Alfaro MD Unavailable Unavailable Tomás Alfaro MD Unavailable Unavailable Tomás Alfaro MD Unavailable Unavailable Tomás Alfaro MD Unavailable Unavailable Tomás Alfaro MD Unavailable Unavailable Tomás Alfaro MD Unavailable Unavailable Tomás Alfaro MD Unavailable Unavailable Tomás Alfaro MD Unavailable Unavailable Tomás Alfaro MD Unavailable Unavailable Tomás Alfaro MD Unavailable Unavailable Tomás Alfaro MD Unavailable Unavailable Tomás Alfaro MD Unavailable Unavailable Tomás Alfaro MD Unavailable Unavailable Odin Johnson MD Unavailable Unavailable H[place]ory [place]Odin ag MD Unavailable Unavailable [place] ag MD Unavailable Unavailable AlexOdin ag MD Unavailable Unavailable AlexOdin ag MD Unavailable Unavailable AlexOdin ag MD Unavailable Unavailable AlexOdin ag MD Unavailable Unavailable AlexOdin ag MD Unavailable Unavailable AlexOdin ag MD Unavailable Unavailable AlexOdin ag MD Unavailable Unavailable Odin Johnson MD Unavailable Unavailable AlexOdin ag MD Unavailable Unavailable [place] ag MD Unavailable Unavailable Odin Johnson MD Unavailable Unavailable Odin Johnson MD Unavailable Unavailable Odin Johnson MD Unavailable Unavailable Odin Johnson MD Unavailable Unavailable Odin Johnson MD Unavailable Unavailable Odin Johnson MD Unavailable Unavailable Odin Johnson MD Unavailable Unavailable Odin Johnson MD Unavailable Unavailable [place] ag MD Unavailable Unavailable [place] ag MD Unavailable Unavailable Odin Johnson MD Unavailable Unavailable Odin Johnson MD Unavailable Unavailable Odin Johnson MD Unavailable Unavailable AlexOdin ag MD Unavailable Unavailable [place] ag MD Unavailable Unavailable AlexOdin ag MD Unavailable Unavailable [place]din MD Unavailable Unavailable [place] ag MD Unavailable Unavailable AlexOdin ag MD Unavailable Unavailable [place] ag MD Unavailable Unavailable [place] ag MD Unavailable Unavailable AlexOdin ag MD Unavailable Unavailable [place] ag MD Unavailable Unavailable [place] ag MD Unavailable Unavailable AlexOdni ag MD Unavailable Unavailable AlexOdin MD Unavailable Unavailable [place]din MD Unavailable Unavailable AlexOdin MD Unavailable Unavailable AlexOdin MD Unavailable Unavailable AlexOdin MD Unavailable Unavailable AlexOdin MD Unavailable Unavailable [place] MD Unavailable Unavailable AlexOdin MD Unavailable Unavailable [place] MD Unavailable Unavailable AlexOdin MD Unavailable Unavailable AlexOdin MD Unavailable Unavailable AlexOdin MD Unavailable Unavailable [place]din MD Unavailable Unavailable [place]Odin MD Unavailable Unavailable AlexOdin MD Unavailable Unavailable H[place]ory [place]Odin MD Unavailable Unavailable [place]Odin MD Unavailable Unavailable [place] MD Unavailable Unavailable AlexOdin MD Unavailable Unavailable AlexOdin MD Unavailable Unavailable [place]din MD Unavailable Unavailable [place] ag MD Unavailable Unavailable [place] MD Unavailable Unavailable [place] MD Unavailable Unavailable H[place]ory [place]Odin MD Unavailable Unavailable H[place]Odin MD Unavailable Unavailable [place] ag MD Unavailable Unavailable [place] ag MD Unavailable Unavailable AlexOdin ag MD Unavailable Unavailable Hickory GroveOdni MD Unavailable Unavailable [place] MD Unavailable Unavailable AlexOdin MD Unavailable Unavailable [place] MD Unavailable Unavailable AlexOdin ag MD Unavailable Unavailable [place] ag MD Unavailable Unavailable AlexOdin ag MD Unavailable Unavailable [place] ag MD Unavailable Unavailable [place] ag MD Unavailable Unavailable AlexOdin ag MD Unavailable Unavailable AlexOdin MD Unavailable Unavailable AlexOdin ag MD Unavailable Unavailable [place] ag MD Unavailable Unavailable [place] ag MD Unavailable Unavailable [place] ag MD Unavailable Unavailable [place] MD Unavailable Unavailable AlexOdin MD Unavailable Unavailable AlexOdin MD Unavailable Unavailable AlexOdin MD Unavailable Unavailable Dejuan Witt MD Unavailable Unavailable Dejuan Witt MD Unavailable Unavailable Dejuan Witt MD Unavailable Unavailable Dejuan Witt MD Unavailable Unavailable Dejuan Witt MD Unavailable Unavailable Dejuan Witt MD Unavailable Unavailable Dejuan Witt MD Unavailable Unavailable Dejuan Witt MD Unavailable Unavailable Dejuan Witt MD Unavailable Unavailable WittDejuan MD Unavailable Unavailable WittDejuan MD Unavailable Unavailable Witt, Dejuan Arriola MD Unavailable Unavailable Witt, Dejuan Arriola MD Unavailable Unavailable Witt, Dejuan Arriola MD Unavailable Unavailable Witt, Dejuan Arriola MD Unavailable Unavailable Witt, Dejuan Arriola MD Unavailable Unavailable Witt, Dejuan Arriola MD Unavailable Unavailable WittDejuan MD Unavailable Unavailable WittDejuan MD Unavailable Unavailable WittDejuan MD Unavailable Unavailable Witt, Dejuan Arriola MD Unavailable Unavailable Witt, Dejuan Arriola MD Unavailable Unavailable Witt, Dejuan Arriola MD Unavailable Unavailable Witt, Dejuan Arriola MD Unavailable Unavailable Witt, Dejuan Arriola MD Unavailable Unavailable Witt, Dejuan Arriola MD Unavailable Unavailable Witt, Dejuan Arriola MD Unavailable Unavailable WittDejuan MD Unavailable Unavailable WittDejuan MD Unavailable Unavailable Witt, Dejuan Arriola MD Unavailable Unavailable Witt, Dejuan Arriola MD Unavailable Unavailable Witt, Dejuan Arriola MD Unavailable Unavailable Witt, Dejuan Arriola MD Unavailable Unavailable Witt, Dejuan Arriola MD Unavailable Unavailable Witt, Dejuan Arriola MD Unavailable Unavailable WittDejuan MD Unavailable Unavailable WittDejuan MD Unavailable Unavailable Dejuan Witt MD Unavailable Unavailable WittDejuan MD Unavailable Unavailable WittDejuan MD Unavailable Unavailable WittDejuan MD Unavailable Unavailable WittDejuan MD Unavailable Unavailable WittDejuan MD Unavailable Unavailable WittDejuan MD Unavailable Unavailable WittDejuan MD Unavailable Unavailable Dejuan Witt MD Unavailable Unavailable Dejuan Witt MD Unavailable Unavailable WittDejuan MD Unavailable Unavailable WittDejuan MD Unavailable Unavailable WittDejuan MD Unavailable Unavailable WittDejuan MD Unavailable Unavailable WittDejuan MD Unavailable Unavailable WittDejuan MD Unavailable Unavailable Dejuan Witt MD Unavailable Unavailable Roseline Elam MD Unavailable Unavailable Roseline Elam MD Unavailable Unavailable Roseline Elam MD Unavailable Unavailable Roseline Elam MD Unavailable Unavailable Roseline Elam MD Unavailable Unavailable Roseline Elam MD Unavailable Unavailable Roseline Elam MD Unavailable Unavailable Roseline Elam MD Unavailable Unavailable Roseline Elam MD Unavailable Unavailable Roseline Elam MD Unavailable Unavailable Roseline Elam MD Unavailable Unavailable Roseline Elam MD Unavailable Unavailable Roseline Elam MD Unavailable Unavailable Roseline Elam MD Unavailable Unavailable Roseline Elam MD Unavailable Unavailable Roseline Elma MD Unavailable Unavailable Roseline Elam MD Unavailable Unavailable Roseline Elam MD Unavailable Unavailable Roseline Elam MD Unavailable Unavailable SlezkaKeshawnjtech Unavailable Unavailable SlezkaKeshawnjtech Unavailable Unavailable Slezka Vojtech Unavailable Unavailable SlezkaKeshawnjtech Unavailable Unavailable SlezkaKeshawnjtech Unavailable Unavailable SlezkaKeshawnjtech Unavailable Unavailable Slezka Vojtech Unavailable Unavailable SlezkaKeshawnjtech Unavailable Unavailable SlezkaKeshawnjtech Unavailable Unavailable SlezkaKeshawnjtech Unavailable Unavailable Slezka, Keshawnjtech Unavailable Unavailable Slezka, Keshawnjtech Unavailable Unavailable Slezka, Vojtech Unavailable Unavailable Slezka, Vojtech Unavailable Unavailable Slezka, Keshawnjtech Unavailable Unavailable Slezka, Vojtech Unavailable Unavailable Slezka, Vojtech MD Unavailable Unavailable Slezka, Keshawnjtech Unavailable Unavailable Slezka, Vojtech Unavailable Unavailable Slezka, Vojtech Unavailable Unavailable Slezka, Keshawnjtech Unavailable Unavailable Slezka, Keshawnjtech Unavailable Unavailable Slezka, Keshawnjtech Unavailable Unavailable Slezka, Keshawnjtech Unavailable Unavailable Slezka, Vojtech Unavailable Unavailable Slezka, Keshawnjtech Unavailable Unavailable Slezka, Keshawnjtech Unavailable Unavailable Slezka, Keshawnjtech Unavailable Unavailable Slezka, Vojtech Unavailable Unavailable Slezka, Vojtech Unavailable Unavailable Slezka, Vojtech Unavailable Unavailable Slezka, Vojtech Unavailable Unavailable Slezka, Vojtech Unavailable Unavailable SlezkaKeshawnjtech Unavailable Unavailable SlezkaKeshawnjtech Unavailable Unavailable SlezkaKeshawnjtech Unavailable Unavailable SlezkaKeshawnjtech Unavailable Unavailable Slezka, Vojtech Unavailable Unavailable Slezka Vojtech Unavailable Unavailable Re-disclosure Warning The records that you are about to access may contain information from federally-assisted alcohol or drug abuse programs. If such information is present, then the following federally mandated warning applies: This information has been disclosed to you from records protected by federal confidentiality rules (42 CFR part 2). The federal rules prohibit you from making any further disclosure of this information unless further disclosure is expressly permitted by the written consent of the person to whom it pertains or as otherwise permitted by 42 CFR part 2. A general authorization for the release of medical or other information is NOT sufficient for this purpose. The Federal rules restrict any use of the information to criminally investigate or prosecute any alcohol or drug abuse patient.The records that you are about to access may contain highly sensitive health information, the redisclosure of which is protected by Article 27-F of the [facility] Public Health law. If you continue you may have access to information: Regarding HIV / AIDS; Provided by facilities licensed or operated by the [facility] Office of Mental Health; or Provided by the [facility] Office for People With Developmental Disabilities. If such information is present, then the following [facility] mandated warning applies: This information has been disclosed to you from confidential records which are protected by state law. State law prohibits you from making any further disclosure of this information without the specific written consent of the person to whom it pertains, or as otherwise permitted by law. Any unauthorized further disclosure in violation of state law may result in a fine or fdc sentence or both. A general authorization for the release of medical or other information is NOT sufficient authorization for further disc losure. Allergies and Adverse Reactions Type Description Substance Reaction Status Data Source(s ) Propensity to adverse reactions PENICILLINS Penicillins Rash Low Ac tive [facility] Low Family History Family Member Name Family Member Gender Family Member Status Date o f Status Description Data Source(s) Unknown Male Problem [facility] ([facility]) Unknown Female Problem [facility] ([facility]) Unknown Female Problem [facility] ([facility]) Unknown Female Problem [facility] ([facility]) Encounters Encounter Providers Location Date Indications Data Source(s ) Outpatient Attender: Lionel Alfaro MD Main Office 01/29/2021 09:15:00 AM EDT [facility] ([facility]) Outpatient Attender: Roseline Elam MD [email or web address] 01/2021 12:00:00 AM EDT [facility] Outpatient Attender: Thomas Kraft 0 11/24/2020 03:00:00 PM EDT MED[facility] ([facility] ) Outpatient Attender: Flako Teresa/Ollie/Roman/Heaven chaudhary 09/17/2020 03:30:00 PM EDT [facility] ([facility]) Outpatient Attender: Roseline FATIMASJDerrickAUDREY 09/2020 12:00:00 AM EST - 08/08/2020 08:11:05 AM EST [facility] [address] [place] [id number] 07/22/2020 12:00:00 AM EST eCW1 ([facility]) Outpatient LYNDSAYAUDREY 07/18/2020 12:00 :00 AM EST - 07/18/2020 12:40:50 PM EST [facility] Outpatient Attender: Flako Teresa/Ollie/Roman/R eindl 07/17/2020 02:30:00 PM EST [facility]patient Attender: Thomas [facility] 0 07/17/2020 08:40:00 AM EST MED[facility] ([facility] ) Outpatient Attender: Flako Teresa/Ollie/Roman/R eindl 07/14/2020 12:23:00 AM EST [facility] Immunizations Vaccine Date Status Description Data Source(s) COVID-19 VACCINE Moderna 07/31/2020 12:00:00 AM EST completed [facility] Vaccine Series Complete: YESThis Data wa s Submitted to [facility] Via MDMailWriter. COVID-19 VACCINE Moderna 07/03/2020 12:00:00 AM EST completed [facility] Vaccine Series Complete: NOThis Data was Submitted to [facility] Via Milyoni. Medications Medication Brand Name Start Date Product Form Dose Route Admi nistrative Instructions Pharmacy Instructions Status Indications Reaction Description Data Source(s) 1.479-0.188- 0.225 gram 01/29/2021 12:00:00 AM EDT tablet 24 USE DIRECTED USE DIRECTED SOLD: 01/30/2021 [facility] Sutab Sutab 01/29/2021 12:00:00 AM EDT active MEDENT ([facility]) Aspirin 81 MG Delayed Release Oral Tablet aspirin EC 8 1 MG EC tablet aspirin EC 81 MG EC tablet 12/11/2020 12:00:00 AM EDT 81 mg Oral ac tive Take 1 tablet (81 mg total) by mouth daily [facility] tadalafil 5 MG Oral Tablet Tadalafil 11/24/2020 12:00:00 AM EDT active MEDENT ([facility]) Aspirin 81 MG Delayed Release Oral Tablet Aspirin Adult Low Strength 11/24/2020 12:00:00 AM EDT ORAL completed [facility] ([facility]) 5 mg 08/26/2020 12:00:00 AM EDT tablet 180 TAKE ONE TABLET BY MOUTH TWICE A DAY TAKE ONE TABLET BY MOUTH TWICE A DAY SOLD: 08/27/2020 [facility] 5 mg 08/13/2020 12:00:00 AM EST tablet 28 TAKE ONE TABLET BY MOUTH TWICE A DAY TAKE ONE TABLET BY MOUTH TWICE A DAY SOLD: 08/13/2020 [facility] CPAP 08/11/2020 12:00:00 AM EST active MED[facility] ([facility] ) 20 mg 08/08/2020 12:00:00 AM EST tablet 90 TAKE ONE TABLET BY MOUTH EVERY DAY TAKE ONE TABLET BY MOUTH EVERY DAY SOLD: 11/03/2020 [facility] 20 mg 08/08/2020 12:00:00 AM EST tablet 90 TAKE ONE TABLET BY MOUTH EVERY DAY TAKE ONE TABLET BY MOUTH EVERY DAY SOLD: 08/08/2020 [facility] Lisinopril 20 MG Oral Tablet lisinopril (PRINIVIL,ZEST RIL) 20 MG tablet lisinopril (PRINIVIL,ZESTRIL) 20 MG tablet 08/07/2020 12:00:00 AM EST 20 mg Oral active Take 1 tablet (20 mg total) by mouth daily [facility] 0.1 % 07/24/2020 12:00:00 AM EST cream 80 APPLY TWICE A DAY NEEDED APPLY TWICE A DAY NEEDED SOLD: 07/24/2020 [facility] Triamcinolone Acetonide 1 MG/ML Topical Cream triamcinolone (KENALOG) 0.1 % cream triamcinolone (KENALOG) 0.1 % cream 07/24/2020 12:00:00 AM EST Topical active Apply topically [facility] 10 mg 07/18/2020 12:00:00 AM EST tablet 30 TAKE ONE TABLET BY MOUTH EVERY DAY TAKE ONE TABLET BY MOUTH EVERY DAY SOLD: 07/18/2020 [facility] Lisinopril 10 MG Oral Tablet lisinopril (PRINIVIL,ZEST RIL) 10 MG tablet lisinopril (PRINIVIL,ZESTRIL) 10 MG tablet 07/18/2020 12:00:00 AM EST 10 mg Oral aborted Take 1 tablet (10 mg total) by mouth daily [facility] Amlodipine 5 MG / Benazepril hydrochlori de 10 MG Oral Capsule amLODIPine- benazepril (LOTREL 5-10) 5-10 MG per capsule amLODIPine-benazepril (LOTREL 5-10) 5-10 MG per capsule 07/17/2020 12:00:00 AM EST abo rted [facility] Autopap 07/17/2020 12:00:00 AM EST completed [facility] ([facility] ) Amlodipine 5 MG / Benazepril hydrochloride 10 MG Oral Capsule Amlodipine Besylate/Benazepril Hydrochloride 07/17/2020 12:00:00 AM EST ORAL completed [facility] apixaban 5 MG Oral Tablet [Eliquis] Eliquis 07/15/2020 12:00:[address] ORAL active [facility] Atenolol 25 MG Oral Tablet ATENOLOL 07/14/2020 12:00:00 AM EST tablet 10 TAKE TWO TABLETS BY MOUTH EVERY DAY NEEDED FOR ELEVATED BLOOD PRESSURE, PALPITATIONS OR TACHYCARDIA TAKE TWO TABLETS BY MOUTH EVERY DAY N EEDED FOR ELEVATED BLOOD PRESSURE, PALPITATIONS OR TACHYCARDIA SOLD: 07/14/2020 [facility] 5 mg 07/14/2020 12:00:00 AM EST tablet 60 TAKE ONE TABLET BY MOUTH TWICE A DAY TAKE ONE TABLET BY MOUTH TWICE A DAY SOLD: 07/14/2020 [facility] apixaban 5 MG Oral Tablet [Eliquis] ELIQUIS 5 MG TABS tablet ELIQUIS 5 MG TABS tablet 07/14/2020 12:00:00 AM EST 5 mg Oral active Take 5 mg by mouth 2 (two) times a day [facility] Insurance Providers Payer name Policy type / Coverage type Policy ID Covered libertarian ID Covered libertarian's relationship to espana Policy [place] Plan Information [employer] Leather[place] 306/806 [id number] SP [id number] BS [place] Commercial [id number] Self [id number] BS [place] [employer] Commercial [id number] Indemnity [id number] Self 806 Indemnity [place] Medigap Part B [id number] Self [id number] BS [place] [employer] Commercial [id number] Self 802 BS Of [place] Commercial [id number] Self BS [place] [employer]/[place] Medigap Part B [id number] Self [id number] BS [place] [employer] Commercial [id number] Self [id number] BS [place] [employer]/[place] Commercial [id number] Self 802 [place] BCBS [id number] BS [place] [employer] Commercial [id number] Self [id number] [place] BCBS [id number] [place] VYS BS [place] Trad/[place] Commercial [id number] Self [id number] [place] 306/806 [id number] SP [id number] [place] 306/806 [id number] SP [id number] [place] 306/806 [id number] SP [id number] [place]BS [place] PPO 302/307 [id number] SP [id number] [place] 306/806 [id number] SP [id number] [place]BS [place] PPO 302/307 [id number] SP [id number] Problems, Conditions, and Diagnoses Code Display Name Description Problem Type Effective Dates Data Source(s) I10 Essential (primary) hypertension Essential (primary) h ypertension Diagnosis 12/11/2020 04:11:35 PM EDT [facility] G47.33 Obstructive sleep apnea (adult) (pediatr ic) Obstructive sleep apnea (adult) (pediatr Diagnosis 12/11/2020 04:11:35 PM EDT [facility] I48.0 Paroxysmal atrial fibrillation Paroxysmal atrial fibri llation Diagnosis 12/11/2020 04:11:35 PM EDT [facility] G47.33 Obstructive sleep apnea syndrome Obstructive sle ep apnea syndrome [id number] 08/07/2020 12:00:00 AM [facility] I10 Essential hypertension Essential hypertension [id number] 08/07/2020 12:00:00 AM EST [facility] I48.0 Paroxysmal atrial fibrillation Paroxysmal atrial fibri llation [id number] 08/07/2020 12:00:00 AM [facility] Surgeries/Procedures Procedure Description Date Indications Data Source(s) OFFICE OUTPATIENT NEW 30 MINUTES 01/29/2021 12:00:00 A M EDT MEDENT ([facility]) PERIODIC PREVENTIVE MED EST PATIENT 40-64YRS 12:00:00 AM EDT KAT ([facility]) ECG ROUTINE ECG W/LEAST 12 LDS W/I&R <td>POCT AMB EKG</td><td>Routine</td><td>08/07/2020 6:00 PM EST</td><td> Paroxysmal atrial fibrillation Essential hypertension</td><td> </td> 08/07/2020 11:00:00 PM EST Essential hypertensionParoxysmal atrial fibrillation [facility] Essential hypertension Paroxysmal atrial fibrillation Eason Cre SRV W/I 7 Days Of DC, Comm W/I 2 Dys Med Rec 07/17/2020 12:00:00 AM EST [facility] ([facility] ) Results ID Date Data Source [id number] 01/22/2021 11:08:00 AM EDT [facility] Name Value Range Interpretation Code Description Data Elsi rce(s) Supporting Document(s) SARS coronavirus 2 RNA [Presence] in Res piratory specimen by SHOBHA with probe detection NEGATIVE [facility] This lab was ordered by [facility] a nd reported by [facility]. ID Date Data Source [id number] 01/16/2021 03:33:00 PM EDT [facility] Name Value Range Interpretation Code Description Data Elsi rce(s) Supporting Document(s) SARS coronavirus 2 RNA [Presence] in Res piratory specimen by SHOBHA with probe detection NEGATIVE [facility] This lab was ordered by [facility] a nd reported by [facility]. ID Date Data Source [id number] 11/24/2020 07:50:00 AM EDT [facility] ([facility]) Name Value Range Interpretation Code Description Data Elsi rce(s) Supporting Document(s) Prostate specific Ag [Mass/volume] in Serum or Plasma Labora tory test result 0.000-4.000 [facility] ([facility]) José Miguel ECLIA methodology. . According to the [place] [employer], Serum PSA should decrease and remain at undetectable levels after radical prostatectomy. The AUA defines biochemical recurrence as an initial PSA value 0.200 ng/mL or greater followed by a subsequent confirmatory PSA value 0.200 ng/mL or greater. Values obtained with different assay methods or kits cannot be used interchangeably. Results cannot be interpreted as absolute evidence of the presence or absence of malignant disease. Performed at: RN - [facility] [address] [id number] Collection Teller: Margaux Mcdonnell MD, Phone: [phone] ID Date Data Source [id number] 11/24/2020 07:50:00 AM EDT [facility] ([facility]) Name Value Range Interpretation Code Description Data Elsi rce(s) Supporting Document(s) Thyroid Stimulating Hormone 4.800 uIU/ML 0.358-3.740 [facility] ([facility]) Free T4 0.92 ng/dL 0.76-1.46 [facility] ([facility]) ID Date Data Source [id number] 11/24/2020 07:50:00 AM EDT [facility] ([facility]) Name Value Range Interpretation Code Description Data Elsi rce(s) Supporting Document(s) Red Blood Count 4.72 10 4.30-6.10 [facility] ([facility]) White Blood Count 6.9 10 4.0-10.0 MEDENT ([facility]) Hemoglobin 14.9 g/dL 13.5-17.5 MEDENT ([facility]) Hematocrit 44.1 % 42.0-52.0 [facility] Mean Corpuscular HGB Conc 33.8 g/dL 32.0-36.5 MEDE NT ([facility]) Mean Corpuscular Volume 93.4 fl 80.0-96.0 MEDENT ([facility]) Mean Corpuscular Hemoglobin 31.6 pg 27.0-33.0 VA DENT ([facility]) Platelet Count, Automated 227 10 150-450 MEDE NT ([facility]) Neutrophils % 61.7 % 36.0-66.0 MEDENT ([facility]) Red Cell Distribution Width 12.7 % 11.5-14.5 ME DENT ([facility]) [place] % 10.5 % 2.0-8.0 MED[facility] ([facility]) Lymph % 21.6 % 24.0-44.0 [facility] ([facility] [facility]) Baso % 0.7 % 0.0-1.0 [facility] ([facility]) Eos % 4.8 % 0.0-3.0 [facility] ([facility] [facility]) Neutrophils # 4.2 10 1.5-8.5 MEDENT ([facility]) Nucleated Red Blood Cell % 0.0 % 0-0 MED ENT ([facility]) Immature Granulocyte % 0.7 % 0-3.0 MEDENT ([facility]) Lymph # 1.5 10 1.5-5.0 MEDENT ([place] [facility] [place] # 0.7 10 0.0-0.8 MEDENT ([place] [facility]) Baso # 0.1 10 0.0-0.2 MEDENT ([place] [facility]) Eos # 0.3 10 0.0-0.5 MEDENT ([place] [facility]) ID Date Data Source [id number] 11/24/2020 07:50:00 AM EDT MEDENT ([facility]) Name Value Range Interpretation Code Description Data Elsi rce(s) Supporting Document(s) Glucose, Fasting 105 mg/dL 70-100 MEDENT ([facility]) Blood Urea Nitrogen 13 mg/dL 7-18 [facility] Glomerular Filtration Rate [facility] [facility] <content>Units are mL/min/1.73 m2</content>
<content></content>
<content>Chronic Kidney Disease Staging per NKF:</content>
<content></content>
<content>Stage I & II GFR >=60 Normal to Mildly Decreased</content>
<content>Stage III GFR 30- 59 Moderately Decreased</content>
<content>Stage IV GFR 15-29 Severely Decreased</content>
<content>Stage V GFR <15 Very Little GFR Left</content>
<content>ESRD GFR <15 on TRANSMISSION MAINTENANCE SUPERVISOR</content>
<content></content> Creatinine For GFR 0.90 mg/dL 0.70-1.30 MEDENT ([facility]) Sodium Level 136 meq/L 136-145 MEDENT ([facility]) Potassium Serum 4.7 meq/L 3.5-5.1 MEDENT ([facility]) Carbon Dioxide Level 29 meq/L 21-32 [facility] ([facility]) Chloride Level 103 meq/L 98-107 [facility] ([facility]) Anion Gap 4 meq/L 8-16 [facility] ([place] [facility]) Calcium Level 8.8 mg/dL 8.8-10.2 [facility] ([facility]) ID Date Data Source [id number] 09/03/2020 12:00:00 AM EDT [facility] Name Value Range Interpretation Code Description Data Elsi rce(s) Supporting Document(s) SARS-CoV2 Rapid Antigen Negative [facility] This lab was ordered by [facility] and reported by [facility]. ID Date Data Source [id number] 07/13/2020 07:16:00 PM EST [facility] Name Value Range Interpretation Code Description Data Elsi rce(s) Supporting Document(s) SARS coronavirus 2 RNA [Presence] in Res piratory specimen by SHOBHA with probe detection NEGATIVE [facility] This lab was ordered by [facility] a nd reported by [facility]. ID Date Data Source [id number] 05/16/2020 08:05:00 AM EST [facility] Name Value Range Interpretation Code Description Data Elsi rce(s) Supporting Document(s) SARS coronavirus 2 RNA [Presence] in Res piratory specimen by SHOBHA with probe detection [facility] This lab was ordered by [facility] a nd reported by [facility]. Procedure Social History Code Duration Value Status Description Data Source(s ) Alcohol intake 12/11/2020 12:00:00 AM EDT Current drinker of al cohol (finding) completed Current drinker of alcohol (finding) [facility] Smoking 09/17/2020 12:00:00 AM EDT Patient is a former smoker completed Patient is a former smoker MEDENT ([facility]) Tobacco use and exposure 08/07/2020 12:00:00 AM EST Never used co mpleted Never used [facility] Smoking 08/07/2020 12:00:00 AM EST Former smoker completed Former smoker [facility] Alcohol intake 08/07/2020 12:00:00 AM EST Yes completed [facility] Smoking 08/07/2020 12:00:00 AM EST Former smoker completed Former smoker [facility] Vital Signs ID Date Data Source UNK Name Value Range Interpretation Code Description Data Source(s) Body height 71 [in_i] 71 [in_i] [facility] 5'11" Body weight 244.00 [lb_av] 244.00 [lb_av] MEDEN T ([facility]) Systolic blood pressure 126 mm[Hg] 126 mm[Hg] M EDENT ([facility]) Diastolic blood pressure 79 mm[Hg] 79 mm[Hg] MEDENT ([facility]) Heart rate 61 /min 61 /min [facility] ([facility]) Body mass index (BMI) [Ratio] 34.0 kg/m2 34.0 k g/m2 MEDENT ([facility]) Body weight 110.678 kg 110.678 kg [facility] ([facility]) Body temperature 97.5 [degF] 97.5 [degF] MEDENT ([facility]) Systolic blood pressure 116 mm[Hg] 116 mm[Hg] [facility] Diastolic blood pressure 70 mm[Hg] 70 mm[Hg] [facility] Heart rate 59 /min 59 /min [facility] Body height 180.3 cm 180.3 cm [facility] Body weight 109.77 kg 109.77 kg [facility] Body mass index (BMI) [Ratio] 33.75 kg/m2 33.75 kg/m2 [facility] Oxygen saturation in Arterial blood by Pulse oximetry 96 % 96 % [facility] Body mass index (BMI) [Ratio] 34.9 kg/m2 34.9 k g/m2 MEDENT ([facility]) Body height 69.50 [in_i] 69.50 [in_i] MEDENT ([facility]) 5'9.50" Body weight 240.00 [lb_av] 240.00 [lb_av] MEDEN T ([facility]) Systolic blood pressure 126 mm[Hg] 126 mm[Hg] M EDENT ([facility]) Diastolic blood pressure 68 mm[Hg] 68 mm[Hg] MEDENT ([facility]) Heart rate 68 /min 68 /min [facility] Systolic blood pressure 122 mm[Hg] 122 mm[Hg] [facility], [facility] Diastolic blood pressure 70 mm[Hg] 70 mm[Hg] [facility] ([facility], ) Heart rate 69 /min 69 /min [facility] ([facility], ) Oxygen saturation in Arterial blood by Pulse oximetry 99 % 99 % [facility] ([facility], ) Room Air Body weight 243.00 [lb_av] 243.00 [lb_av] MEDEN T ([facility], ) Body weight 110.225 kg 110.225 kg [facility] ([facility], ) Systolic blood pressure 146 mm[Hg] 146 mm[Hg] [facility] Diastolic blood pressure 80 mm[Hg] 80 mm[Hg] [facility] Heart rate 62 /min 62 /min [facility] Body height 180.3 cm 180.3 cm [facility] Body weight 110.678 kg 110.678 kg [facility] Body mass index (BMI) [Ratio] 34.03 kg/m2 34.03 kg/m2 [facility] Oxygen saturation in Arterial blood by Pulse oximetry 97 % 97 % [facility] Diastolic blood pressure 70 mm[Hg] 70 mm[Hg] [facility] ([facility], ) Heart rate 67 /min 67 /min [facility] ([facility], ) Oxygen saturation in Arterial blood by Pulse oximetry 98 % 98 % [facility] ([facility], ) Room Air Body temperature 96.3 [degF] 96.3 [degF] [facility] ([facility], ) Body weight 247.00 [lb_av] 247.00 [lb_av] MEDEN T ([facility], ) Body weight 112.039 kg 112.039 kg [facility] ([facility], ) Systolic blood pressure 120 mm[Hg] 120 mm[Hg] M EDENT ([facility], ) Heart rate 72 /min 72 /min [facility]) Systolic blood pressure 142 mm[Hg] 142 mm[Hg] EDENT ([facility]) Diastolic blood pressure 80 mm[Hg] 80 mm[Hg] MEDENT ([facility]) Body height 69.50 [in_i] 69.50 [in_i] MEDENT ([facility]) 5'9.50" Body weight 253.00 [lb_av] 253.00 [lb_av] MEDEN T ([facility]) Body mass index (BMI) [Ratio] 36.8 kg/m2 36.8 k g/m2 MEDENT ([facility]) Patient Treatment Plan of Care Planned Activity Planned Date Details Description Data Source (s) Aspirin 81 MG Delayed Release Oral Tablet 12/11/2020 12:00:00 AM ED T [facility] Lisinopril 20 MG Oral Tablet 08/07/2020 12:00:00 AM [facility] Triamcinolone Acetonide 1 MG/ML Topical Cream 07/24/2020 12:00:00 A M [facility] Lisinopril 10 MG Oral Tablet 07/18/2020 12:00:00 AM [facility] Amlodipine 5 MG / Benazepril hydrochloride 10 MG Oral Capsule 07/17/2020 12:00:00 AM [facility] apixaban 5 MG Oral Tablet [Eliquis] 07/14/2020 12:00:00 AM [facility]
--- OUTSIDE RECORDS SUMMARY | 2021-03-20 08:22 | CCD | Continuity of Care Document ---
Author Author Benny Johnson MD Organization Unknown Address [address] [facility] [address] [place] [address] Phone [phone] Care Team Providers Care Senior Talent Acquisition Specialist Name Role Phone Thomas Johnson JR, MD AUTM Unavailable [facility]M [phone] Problems Active Problems Provider Date Malignant tumor of prostate Thomas Johnson MD Onset: 01/2012 Abnormal glucose level Thomas Johnson MD Onset: 06/13/19 12 Benign neoplasm of colon Thomas Johnson MD Onset: 2012 Social History Type Date Description Comments Sex Unknown ETOH Use Occasionally consumes beer ETOH Use Occasionally consumes liquor Tobacco Use Start: Unknown End: Unknown Patient is a former smoker smoked for 10yrs 1 spenser a day Allergies, Adverse Reactions, Alerts Active Allergies Reaction Severity Comments Date Penicillen 06/18/2009 Medications Active Medications SIG Qnty Indications Ordering Provide r Date Tadalafil 5mg Tablets Take 1 Tablet By Mouth Every Day 90tabs Thomas Johnson MD 11/24/2020 Eliquis 5mg Tablets take one tablet by mouth twice a day 90tabs Thomas Johnson MD 07/15/19 21 Shingrix 50mcg Suspension Rec administer 0.5 milliliters intramuscular, repeat in 2 to 6 months 2units Thomas Johnson MD 11/21/2017 Ilotycin 5mg/GM Ointment apply 1 cm ribbon four times a day in each eye for 7 days 1unchristina Johnson MD 05/20/2015 Lisinopril 20mg Tablets 1 by mouth every day 90tabs Thomas Johnson MD History Medications Aspirin Adult Low Strength 81mg Tablets DR 1 by mouth every day 90tabs Amber Davis 11/24/2020 - 11/24/2020 Amlodipine Besylate/Benazepril Hydrochlo ride 5-10mg Capsules 1 by mouth every day 30caps Thomas rojas MD 07/17/2020 - 11/24/2020 Immunizations Description No Information Available Vital Signs Date Vital Result Comment 11/24/2020 2:59pm BP Systolic 126 mmHg BP Diastolic 68 mmHg Heart Rate 68 /min Height 69.50 inches 5'9.50" Weight 240.00 lb BMI (Body Mass Index) 34.9 kg/m2 07/17/2020 9:44am BP Systolic 142 mmHg BP Diastolic 80 mmHg Heart Rate 72 /min Height 69.50 inches 5'9.50" Weight 253.00 lb BMI (Body Mass Index) 36.8 kg/m2 Results Test Acquired Date Facility Test Result H/L Range Note Basic Metabolic Profile 11/24/[address] [address] [phone] Glucose, Fasting 105 mg/dL High 70-100 Blood Urea Nitrogen 13 mg/dL Normal 7-18 Creatinine For GFR 0.90 mg/dL Normal 0.70-1.30 Glomerular Filtration Rate > 60.0 Normal >49 1 Sodium Level 136 mEq/L Normal 136-145 Potassium Serum 4.7 mEq/L Normal 3.5-5.1 Chloride Level 103 mEq/L Normal 98-107 Carbon Dioxide Level 29 mEq/L Normal 21-32 Anion Gap 4 mEq/L Low 8-16 Calcium Level 8.8 mg/dL Normal 8.8-10.2 CBC With Differential 11/24/[address] [address] [phone] White Blood Count 6.9 10 Normal 4.0-10.0 Red Blood Count 4.72 10 Normal 4.30-6.10 Hemoglobin 14.9 g/dL Normal 13.5-17.5 Hematocrit 44.1 % Normal 42.0-52.0 Mean Corpuscular Volume 93.4 fl Normal 80.0-96.0 Mean Corpuscular Hemoglobin 31.6 pg Normal 27.0-33.0 Mean Corpuscular HGB Conc 33.8 g/dL Normal 32.0-36.5 Red Cell Distribution Width 12.7 % Normal 11.5-14.5 Platelet Count, Automated 227 10 Normal 150-450 Neutrophils % 61.7 % Normal 36.0-66.0 Lymph % 21.6 % Low 24.0-44.0 [place] % 10.5 % High 2.0-8.0 Eos % 4.8 % High 0.0-3.0 Baso % 0.7 % Normal 0.0-1.0 Immature Granulocyte % 0.7 % Normal 0-3.0 Nucleated Red Blood Cell % 0.0 % Normal 0-0 Neutrophils # 4.2 10 Normal 1.5-8.5 Lymph # 1.5 10 Normal 1.5-5.0 [place] # 0.7 10 Normal 0.0-0.8 Eos # 0.3 10 Normal 0.0-0.5 Baso # 0.1 10 Normal 0.0-0.2 FT4&TSH Panel 11/24/2020 [facility] nter [address] [place] [address] [phone] Thyroid Stimulating Hormone 4.800 uIU/ML High 0. 358-3.740 Free T4 0.92 ng/dL Normal 0.76-1.46 Laboratory test finding 11/24/2020 [facility] [address] [place] [address] [phone] PSA Ultrasensitive <0.014 ng/mL Normal 0.000-4.000 2 1 Units are mL/min/1.73 m2 Chronic Kidney Disease Staging per NKF: Stage I & II GFR >=60 Normal to Mildly Decreased Stage III GFR 30-59 Moderately Decreased Stage IV GFR 15-29 Severely Decreased Stage V GFR <15 Very Little GFR Left ESRD GFR <15 on SENIOR SOFTWARE ANALYST 2 José Miguel ECLIA methodology. . According to the [place] [employer], Serum PSA should decrease and [...] or absence of malignant disease. Performed at: - [address] [place] [id number] Billet Inspector: Margaux Mcdonnell MD, Phone: [phone] Procedures Date Code Description Status 11/24/2020 47575 Est Prevent Med (40-64Yrs) Compl eted 07/17/2020 40230 Eason Cre SRV W/I 7 Days Of DC, C omm W/I 2 Dys Med Rec Completed 03/24/2016 [id number] Colonoscopy Completed 03/09/2013 [id number] Colonoscopy Completed Medical Devices Description No Information Available Encounters Type Date Location Provider Dx Diagnosis Office Visit 11/24/2020 3:00p [facility] Thomas Johnson MD Z00.01 Encounter for general adult medical exam w abnormal findings R73.09 Other abnormal glucose Z85.46 Personal history of malignan t neoplasm of prostate I48.0 Paroxysmal atrial fibrillati on I11.9 [facility] Z86.010 Personal history of colonic polyps E07.89 Other specified disorders of thyroid Z68.34 Body mass index [BMI] 34.0-3 4.9, adult Office Visit 07/17/2020 9:40a [facility] Thomas Johnson MD I48.0 Paroxysmal atrial fibrillation I11.9 Hypertensive heart disease w ithout heart failure E07.9 Disorder of thyroid, unspeci fied E66.09 Other obesity due to excess calories Z68.34 Body mass index [BMI] 34.0-3 4.9, adult Assessments Date Code Description Provider 11/24/2020 Z00.01 Encounter for genera l adult medical examination with abnormal findings Thomas Johnson MD 11/24/2020 R73.09 Other abnormal glucose Thomas Johnson MD 11/24/2020 Z85.46 Personal history of malignant ne oplasm of prostate Thomas Johnson MD 11/24/2020 I48.0 Paroxysmal atrial fibrillation C lewis Johnson MD 11/24/2020 I11.9 Hypertensive heart disease witho ut heart failure Thomas Johnson MD 11/24/2020 Z86.010 Personal history of colonic poly ps Thomas Johnson MD 11/24/2020 E07.89 Other specified disorders of thy roid Thomas Johnson MD 11/24/2020 Z68.34 Body mass index [BMI] 34.0-34.9, adult Thomas Johnson MD 07/17/2020 I48.0 Paroxysmal atrial fibrillation C lewis Johnson MD 07/17/2020 I11.9 Hypertensive heart disease witho ut heart failure Thomas Johnson MD 07/17/2020 E07.9 Disorder of thyroid, unspecified Thmoas Johnson MD 07/17/2020 E66.09 Other obesity due to excess arash cadence Thomas Johnson MD 07/17/2020 Z68.34 Body mass index [BMI] 34.0-34.9, adult Thomas Johnson MD Plan of Treatment Future Appointment(s):* 11/25/2021 1:00 pm - [facility] 11/24/2020 - Thomas Johnson MD* Z00.01 Encounter for general adult medical examination with abnormal findings * R73.09 Other abnormal glucose * Z85.46 Personal history of malignant neoplasm of prostate * I48.0 Paroxysmal atrial fibrillation * I11.9 Hypertensive heart disease without heart failure * Z86.010 Personal history of colonic polyps * E07.89 Other specified disorders of thyroid * Z68.34 Body mass index [BMI] 34.0-34.9, adult * All * New Medication:* Tadalafil 5 mg - Take 1 Tablet By Mouth Every Day * Aspirin Adult Low Strength 81 mg - 1 by mouth every day * Comments:* D/c Eliquis. Was given refills for both Lisinopril and Cialis. Will need colorectal screening this fall because of history of colonic polyps. Functional Status Description No Information Available Mental Status Description No Information Available Referrals Refer to Reason for Referral Status Appt Date Lionel Alfaro MD CONSULT FOR SCREENING COLONOSCOPY Pito hurley Notified 01/29/2021 [address] [facility] [address] [phone]
--- OUTSIDE RECORDS SUMMARY | 2021-03-20 08:22 | CCD | Continuity of Care Document ---
Author Author Benny Johnson MD Organization Unknown Address [address] [facility] [address] [place] [address] Phone [phone] Care Team Providers Care Banquet Bartender Name Role Phone Thomas Johnson JR, MD AUTM Unavailable [facility] AUTM [phone] Problems Active Problems Provider Date Malignant tumor [...] H/L Range Note Basic Metabolic Profile 11/24/[address] [address] [phone] Glucose, Fasting 105 mg/dL High 70-100 Blood [...] mg/dL Normal 8.8-10.2 CBC With Differential 11/24/[address] [address] [phone] White Blood Count 6.9 10 Normal 4.0-10.0 [...] 36.0-66.0 Lymph % 21.6 % Low 24.0-44.0 [place] % 10.5 % High 2.0-8.0 Eos % 4.8 % High 0.0-3.0 Baso % 0.7 % Normal 0.0-1.0 Immature Granulocyte % 0.7 % Normal 0-3.0 Nucleated Red Blood Cell % 0.0 % Normal 0-0 Neutrophils # 4.2 10 Normal 1.5-8.5 Lymph # 1.5 10 Normal 1.5-5.0 [place] # 0.7 10 Normal 0.0-0.8 Eos # 0.3 10 Normal 0.0-0.5 Baso # 0.1 10 Normal 0.0-0.2 FT4&TSH Panel 11/24/2020 [facility] nter [address] [place] [address] [phone] Thyroid Stimulating Hormone 4.800 uIU/ML High 0. 358-3.740 Free T4 0.92 ng/dL Normal 0.76-1.46 Laboratory test finding 11/24/2020 [facility] [address] [place] [address] [phone] PSA Ultrasensitive <0.014 ng/mL Normal 0.000-4.000 2 1 Units are mL/min/1.73 m2 Chronic Kidney Disease Staging per NKF: Stage I & II GFR >=60 Normal to Mildly Decreased Stage III GFR 30-59 Moderately Decreased Stage IV GFR 15-29 Severely Decreased Stage V GFR <15 Very Little GFR Left ESRD GFR <15 on METEOROLOGICAL OBSERVER 2 José Miguel ECLIA methodology. . According to the [place] [employer], Serum PSA should decrease and [...] absence of malignant disease. Performed at: - [address] [place] [id number] It Infrastructure Architect: Margaux Mcdonnell MD, Phone: [phone] Procedures Date Code Description Status 11/24/2020 98768 Est Prevent Med (40-64Yrs) Compl eted 07/17/2020 15587 Eason Cre SRV W/I 7 Days Of DC, C omm W/I 2 Dys Med Rec Completed 03/24/2016 [id number] Colonoscopy Completed 03/09/2013 [id number] Colonoscopy Completed Medical Devices Description No Information Available Encounters Type Date Location Provider Dx Diagnosis Office Visit 11/24/2020 3:00p [facility] Thomas Johnson MD Z00.01 Encounter for general adult medical exam w abnormal findings R73.09 Other abnormal glucose Z85.46 Personal history of malignan t neoplasm of prostate I48.0 Paroxysmal atrial fibrillati on I11.9 [facility] Z86.010 Personal history of colonic polyps E07.89 Other specified disorders of thyroid Z68.34 Body mass index [BMI] 34.0-3 4.9, adult Office Visit 07/17/2020 9:40a [facility] Thomas Johnson MD I48.0 Paroxysmal atrial fibrillation I11.9 Hypertensive heart disease w ithout heart failure E07.9 Disorder of thyroid, unspeci fied E66.09 Other obesity due to excess calories Z68.34 Body mass index [BMI] 34.0-3 4.9, adult Assessments Date Code Description Provider 11/24/2020 Z00.01 Encounter for genera l adult medical examination with abnormal findings Thomas Jhonson MD 11/24/2020 R73.09 Other abnormal glucose Thomas [...] MD 07/17/2020 E07.9 Disorder of thyroid, unspecified Thomas Johnson MD 07/17/2020 E66.09 Other obesity due to excess arash cadence Thomas Johnson MD 07/17/2020 Z68.34 Body mass index [BMI] 34.0-34.9, adult Thomas Johnson MD Plan of Treatment Future Appointment(s):* 11/25/2021 1:00 pm - [facility] 11/24/2020 - Thomas Johnson [...] SCREENING COLONOSCOPY Pito hurley Notified 01/29/2021 [address] [facility] [address] [phone]
--- OUTSIDE RECORDS SUMMARY | 2021-03-20 08:22 | CCD | Continuity of Care Document ---
Author Author Benny ALFARO M.D. Organization Unknown Address [address] [place] [address] Phone [phone] Care Team Providers Care Conductor Freight Name Role Phone Thomas Johnson M.D. AUTM [phone] Problems Active Problems Provider Date Screening for malignant neoplasm of colon Nasir Temple Onset: 12/26/2012 Social History Type Date Description Comments Sex Unknown ETOH Use Occasionally Tobacco Use Start: Unknown End: Unknown Patient is a former smoker Allergies, Adverse Reactions, Alerts Active Allergies Criticality Reaction | Severity Comments Date Penicillin Unable to assess criticality Hives 12/26/2012 Medications Active Medications SIG Qnty Indications Ordering Provide r Date Sutab [id number] Tablets as directed 1box Lionel Alfaro M.D. 01/29/2021 Cialis Unknown Lisinopril 20mg Tablets Take 1 Tablet By Mouth Every Day Unknown Aspirin Adult Low Dose 81mg Tablets DR Unknown Immunizations Description No Information Available Vital Signs Date Vital Result Comment 01/29/2021 9:16am Height 71 inches 5'11" Weight 244.00 lb BP Systolic 126 mmHg BP Diastolic 79 mmHg Heart Rate 61 /min BMI (Body Mass Index) 34.0 kg/m2 Weight 110.678 kg Body Temperature 97.5 F 02/13/2016 9:07am Height 71 inches 5'11" Weight 242.00 lb BP Systolic 136 mmHg BP Diastolic 89 mmHg Heart Rate 60 /min BMI (Body Mass Index) 33.7 kg/m2 Weight 109.771 kg Results Description No Information Available Procedures Date Code Description Status 01/29/2021 60060 Office/Outpatient New Low MDM 30 -44 Minutes Completed Medical Devices Description No Information Available Encounters Type Date Location Provider Dx Diagnosis Office Visit 01/29/2021 9:15a Main Office Lionel Alfaro M.D. Z 86.010 Personal history of colonic polyps Assessments Date Code Description Provider 01/29/2021 Z86.010 Personal history of colonic poly ps Lionel Alfaro M.D. Plan of Treatment Future Appointment(s):* 03/20/2021 10:00 am - Lionel Alfaro M.D. at Main Office 01/29/2021 - Lionel Alfaro M.D.* Z86.010 Personal history of colonic polyps* Comments:* 65 yo wm who presents for colon cancer screening. History of colonic polyps in 2012. No c/o abdominal pain, weight loss, or change in bowel habits. No rectal bleeding. No family h/o colon cancer. Last scope was in 2015. Plan:1 .Schedule patient for Colonoscopy. 2. Informed consent given.3. Advised to stop asa, plavix,and anticoagulation 3 to 7 days prior to the procedures. Functional Status Description No Information Available Mental Status Description No Information Available Referrals Description No Information Available
[2021-03-20] MEDS ORDERED: propofoL 200 MG/20 ML VIAL As Ordered ONE (08:42)
[2021-03-20] MEDS ORDERED: LIDOCAINE 2% 100MG/5ML SDV (FOR ANES.) As Ordered ONE (08:42)
--- NOTE | 2021-03-20 09:52 | ROOR ---
Patient Name: Benny Ng Procedure Date: 03/20/2021 9:24 AM Date of : 1955 Age: 65 Room: [facility] Gender: Male Note Status: Finalized Procedure: Total Colonoscopy to Cecum + Biopsy Polypectomy Indications: High risk colon cancer surveillance: Personal history of colonic polyps, Last colonoscopy: 2015 Providers: Lionel Alfaro MD Referring MD: GLEN MONTIEL JR, MD Requesting Provider: Medicines: Monitored Anesthesia Care Complications: No immediate complications. Procedure: Pre-Anesthesia Assessment: - The heart rate, respiratory rate, oxygen saturations, blood pressure, adequacy of pulmonary ventilation, and response to care were monitored throughout the procedure. The Colonoscope was introduced through the anus and advanced to the cecum, identified by appendiceal orifice and ileocecal valve. The colonoscopy was performed without difficulty. The patient tolerated the procedure well. The quality of the bowel preparation was excellent. Findings: The perianal and digital rectal examinations were normal. Non-bleeding internal hemorrhoids were found during retroflexion. The hemorrhoids were small and Grade I (internal hemorrhoids that do not prolapse). A small polyp was found in the hepatic flexure. The polyp was sessile. The polyp was removed with a cold biopsy forceps. Resection and retrieval were complete. A small polyp was found at 60 cm proximal to the anus. The polyp was sessile. The polyp was removed with a cold biopsy forceps. Resection and retrieval were complete. A small polyp was found at 35 cm proximal to the anus. The polyp was sessile. Biopsies were taken with a cold forceps for histology. No other significant abnormalities were identified in a careful examination of the remainder of the colon. The exam was otherwise without abnormality. Impression: - Non-bleeding internal hemorrhoids. - One small polyp at the hepatic flexure, removed with a cold biopsy forceps. Resected and retrieved. - One small polyp at 60 cm proximal to the anus, removed with a cold biopsy forceps. Resected and retrieved. - One small polyp at 35 cm proximal to the anus. Biopsied. - The examination was otherwise normal. - The exam was otherwise normal to the cecum. Recommendation: - Patient has a contact number available for emergencies. The signs and symptoms of potential delayed complications were discussed with the patient. Return to normal activities tomorrow. Written discharge instructions were provided to the patient. - High fiber diet. - Discharge patient to home. - Continue present medications. - Await pathology results. - Telephone GI clinic for pathology results in 1 week. - Return to referring physician. - Repeat colonoscopy in 5 years for surveillance based on pathology results. - The findings and recommendations were discussed with the patient. Procedure Code(s): --- Professional --- 35739, Colonoscopy, flexible; with biopsy, single or multiple Diagnosis Code(s): --- Professional --- Z86.010, Personal history of colonic polyps K64.0, First degree hemorrhoids K63.5, Polyp of colon CPT copyright 2019 [employer]. All rights reserved. The codes documented in this report are preliminary and upon field crop farm worker review may be revised to meet current compliance requirements. Lionel Alfaro MD Lionel Alfaro MD 03/20/2021 9:51:40 AM Electronically signed by Lionel Alfaro MD Number of Addenda: 0 Note Initiated On: 03/20/2021 9:24 AM Estimated Blood Loss: Estimated blood loss: none.
[2021-03-20 10:10] VITALS: BP 133/75
== END 2021-03-20 10:12 | disposition home or self-care (01) ==
LOC: M OPP 08:18
PROVIDERS: ATTEND Internal Medicine Gastroenterology
DX: Z12.11 Encounter for screening for malignant neoplasm of colon (principal); Z86.010 Personal history of colon polyps; D12.6 Benign neoplasm of colon, unspecified; K64.0 First degree hemorrhoids; G47.30 Sleep apnea, unspecified; Z79.82 Long term (current) use of aspirin; Z79.899 Other long term (current) drug therapy; Z88.0 Allergy status to penicillin; Z85.46 Personal history of malignant neoplasm of prostate; Z87.891 Personal history of nicotine dependence

== ENCOUNTER → 2021-04-22 | Outpatient (REF) ==
[~2021-04-22] MED LIST changes: -NS 1,000 ML IV ONE
[2021-04-22 10:57] LABS: RSV AMPLIFICATION NEGATIVE (NEGATIVE)
== END ==
LOC: M EMP 09:44
PROVIDERS: ATTEND Family Medicine
DX: Z11.52 Encounter for screening for COVID-19 (principal)

== ENCOUNTER → 2021-05-11 | Outpatient (CLI) | payer BC ==
[2021-05-11 09:50] LABS: BASO # 0.1 10^3/uL (0.0-0.2); BASO % 0.4 % (0.0-1.0); EOS # 0.3 10^3/uL (0.0-0.5); EOS % 1.8 % (0.0-3.0); HEMATOCRIT 42.3 % (42.0-52.0); HEMOGLOBIN 14.6 g/dl (13.5-17.5); LYMPH # 1.4 10^3/uL (1.5-5.0); LYMPH % 10.2 % (24.0-44.0); MEAN CORPUSCULAR HEMOGLOBIN 31.5 pg (27.0-33.0); MEAN CORPUSCULAR HGB CONC 34.5 g/dl (32.0-36.5); MEAN CORPUSCULAR VOLUME 91.4 fl (80.0-96.0); MONO # 1.3 10^3/uL (0.0-0.8); MONO % 8.8 % (2.0-8.0); NEUTROPHILS # 11.1 10^3/uL (1.5-8.5); NEUTROPHILS % 78.2 % (36.0-66.0); PLATELET COUNT, AUTOMATED 305 10^3/uL (150-450); RED BLOOD COUNT 4.63 10^6/uL (4.30-6.10); WHITE BLOOD COUNT 14.2 10^3/uL (4.0-10.0)
[2021-05-11 10:58] LABS: ALBUMIN 3.5 GM/DL (3.2-5.2); ALT/SGPT 33 U/L (12-78); BILIRUBIN,TOTAL 1.3 MG/DL (0.2-1.0); BLOOD UREA NITROGEN 16 MG/DL (7-18); CALCIUM LEVEL 8.9 MG/DL (8.8-10.2); CARBON DIOXIDE LEVEL 22 MEQ/L (21-32); CHLORIDE LEVEL 106 MEQ/L (98-107); CREATININE FOR GFR 0.81 MG/DL (0.70-1.30); GLOMERULAR FILTRATION RATE > 60.0 (>49); GLUCOSE, FASTING 118 MG/DL (70-100); POTASSIUM SERUM 4.4 MEQ/L (3.5-5.1); SODIUM LEVEL 136 MEQ/L (136-145); TOTAL PROTEIN 6.5 GM/DL (6.4-8.2)
== END ==
LOC: M LAB 08:34
PROVIDERS: ATTEND Internal Medicine
DX: R19.7 Diarrhea, unspecified (principal); R10.9 Unspecified abdominal pain

== ENCOUNTER → 2021-05-12 | Outpatient (REF) | payer BC | LOC: M LAB REF 09:27 | PROVIDERS: ATTEND Internal Medicine | DX: R19.7 Diarrhea, unspecified (principal); R10.9 Unspecified abdominal pain ==

== ENCOUNTER → 2021-08-14 | Outpatient (REF) | payer BC | LOC: M SFHCDERM 17:23 | PROVIDERS: ATTEND Dermatology | DX: L82.1 Other seborrheic keratosis (principal) ==

== ENCOUNTER → 2021-11-30 | Outpatient (REF) | LOC: M EMP 09:48 | PROVIDERS: ATTEND Family Medicine | DX: Z11.52 Encounter for screening for COVID-19 (principal) ==

== ENCOUNTER → 2021-12-01 | Outpatient (CLI) | payer BC ==
[2021-12-01 09:07] LABS: BASO # 0.1 10^3/uL (0.0-0.2); BASO % 0.7 % (0.0-1.0); EOS # 0.4 10^3/uL (0.0-0.5); EOS % 5.1 % (0.0-3.0); HEMATOCRIT 43.5 % (42.0-52.0); HEMOGLOBIN 14.9 g/dl (13.5-17.5); LYMPH # 1.6 10^3/uL (1.5-5.0); LYMPH % 22.6 % (24.0-44.0); MEAN CORPUSCULAR HEMOGLOBIN 32.2 pg (27.0-33.0); MEAN CORPUSCULAR HGB CONC 34.3 g/dl (32.0-36.5); MONO # 0.7 10^3/uL (0.0-0.8); MONO % 10.6 % (2.0-8.0); NEUTROPHILS # 4.1 10^3/uL (1.5-8.5); NEUTROPHILS % 60.4 % (36.0-66.0); PLATELET COUNT, AUTOMATED 242 10^3/uL (150-450); RED BLOOD COUNT 4.63 10^6/uL (4.30-6.10); WHITE BLOOD COUNT 6.9 10^3/uL (4.0-10.0)
[2021-12-01 09:44] LABS: CHOLESTEROL LEVEL 163 MG/DL (<200); CHOLESTEROL RISK RATIO 3.134 (<5); FREE T4 0.97 NG/DL (0.76-1.46); HDL CHOLESTEROL 52 MG/DL (>40); LDL CHOLESTEROL 102 MG/DL (<100); NON-HDL-C 111 MG/DL; TRIGLYCERIDES LEVEL 46 MG/DL (<150)
[2021-12-01 14:28] LABS: ALBUMIN 3.8 GM/DL (3.2-5.2); ALT/SGPT 47 U/L (12-78); BILIRUBIN,TOTAL 0.8 MG/DL (0.2-1.0); BLOOD UREA NITROGEN 14 MG/DL (7-18); CALCIUM LEVEL 8.8 MG/DL (8.8-10.2); CARBON DIOXIDE LEVEL 26 MEQ/L (21-32); CHLORIDE LEVEL 108 MEQ/L (98-107); GLOMERULAR FILTRATION RATE > 60.0 (>49); GLUCOSE, FASTING 105 MG/DL (70-100); POTASSIUM SERUM 4.6 MEQ/L (3.5-5.1); SODIUM LEVEL 140 MEQ/L (136-145); TOTAL PROTEIN 6.8 GM/DL (6.4-8.2)
[2021-12-01 14:59] LABS: HEMOGLOBIN A1c 5.1 %
== END ==
LOC: M LAB 08:23
PROVIDERS: ATTEND Internal Medicine
DX: E78.00 Pure hypercholesterolemia, unspecified (principal); I11.9 Hypertensive heart disease without heart failure; E07.9 Disorder of thyroid, unspecified; Z85.46 Personal history of malignant neoplasm of prostate

== ENCOUNTER → 2022-01-15 | Outpatient (REF) | LOC: M EMP 08:17 | PROVIDERS: ATTEND Family Medicine | DX: Z11.52 Encounter for screening for COVID-19 (principal) ==

== ENCOUNTER → 2022-03-18 | Outpatient (CLI) | payer BC | LOC: M SOG 08:27 | PROVIDERS: ATTEND Orthopaedic Surgery Hand Surgery | DX: M25.511 Pain in right shoulder (principal) ==

== ENCOUNTER → 2022-06-08 | Outpatient (REF) ==
[2022-06-08 12:43] LABS: RSV AMPLIFICATION NEGATIVE (NEGATIVE)
== END ==
LOC: M EMP 11:16
PROVIDERS: ATTEND Family Medicine
DX: Z20.818 Contact with and (suspected) exposure to other bacterial communicable diseases (principal)

== ENCOUNTER → 2022-06-16 | Outpatient (CLI) | payer BC | LOC: M LAB 08:16 | PROVIDERS: ATTEND Internal Medicine | DX: Z85.46 Personal history of malignant neoplasm of prostate (principal) ==

== ENCOUNTER → 2022-08-20 | Outpatient (REF) | payer BC | LOC: M SFHCDERM 17:12 | PROVIDERS: ATTEND Dermatology | DX: L82.1 Other seborrheic keratosis (principal) ==

== ENCOUNTER → 2022-12-09 | Outpatient (CLI) | payer BC ==
[2022-12-09 07:44] LABS: BASO % 0.6 % (0.0-1.0); EOS # 0.4 10^3/uL (0.0-0.5); EOS % 6.2 % (0.0-3.0); HEMATOCRIT 43.6 % (42.0-52.0); HEMOGLOBIN 15.1 g/dl (13.5-17.5); LYMPH # 1.4 10^3/uL (1.5-5.0); LYMPH % 20.3 % (24.0-44.0); MEAN CORPUSCULAR HEMOGLOBIN 32.3 pg (27.0-33.0); MEAN CORPUSCULAR HGB CONC 34.6 g/dl (32.0-36.5); MEAN CORPUSCULAR VOLUME 93.2 fl (80.0-96.0); MONO # 0.7 10^3/uL (0.0-0.8); MONO % 10.4 % (2.0-8.0); NEUTROPHILS # 4.3 10^3/uL (1.5-8.5); NEUTROPHILS % 61.9 % (36.0-66.0); PLATELET COUNT, AUTOMATED 216 10^3/uL (150-450); RED BLOOD COUNT 4.68 10^6/uL (4.30-6.10)
[2022-12-09 08:08] LABS: ALBUMIN 3.6 G/DL (3.2-5.2); ALKALINE PHOSPHATASE 57 U/L (46-116); ALT/SGPT 41 U/L (7.0-40); AST/SGOT 25 U/L (<34); BILIRUBIN,TOTAL 0.9 MG/DL (0.3-1.2); BLOOD UREA NITROGEN 18 MG/DL (9-23); CARBON DIOXIDE LEVEL 28 MMOL/L (20-31); CHLORIDE LEVEL 103 MMOL/L (98-107); CHOLESTEROL LEVEL 166 MG/DL (<200); CHOLESTEROL RISK RATIO 3.74 (<5); CREATININE FOR GFR 0.82 MG/DL (0.70-1.30); GLOMERULAR FILTRATION RATE > 60.0 (>49); GLUCOSE, FASTING 114 MG/DL (74-106); HDL CHOLESTEROL 44.3 MG/DL (>40); LDL CHOLESTEROL 89.5 MG/DL (<100); NON-HDL-C 121.7 MG/DL; POTASSIUM SERUM 4.6 MMOL/L (3.5-5.1); SODIUM LEVEL 135 MMOL/L (136-145); TOTAL PROTEIN 6.5 G/DL (5.7-8.2); TRIGLYCERIDES LEVEL 161 MG/DL (<150)
[2022-12-09 08:11] LABS: FREE T4 0.93 NG/DL (0.89-1.76)
== END ==
LOC: M LAB 07:16
PROVIDERS: ATTEND Internal Medicine
DX: E03.9 Hypothyroidism, unspecified (principal)

== ENCOUNTER → 2023-12-20 | Outpatient (CLI) | payer BC ==
[2023-12-20 08:50] LABS: BASO % 0.6 % (0.0-1.0); EOS # 0.3 10^3/uL (0.0-0.5); EOS % 4.2 % (0.0-3.0); HEMATOCRIT 44.2 % (42.0-52.0); HEMOGLOBIN 15.3 g/dl (13.5-17.5); LYMPH # 1.2 10^3/uL (1.5-5.0); LYMPH % 16.5 % (24.0-44.0); MEAN CORPUSCULAR HEMOGLOBIN 32.1 pg (27.0-33.0); MEAN CORPUSCULAR HGB CONC 34.6 g/dl (32.0-36.5); MEAN CORPUSCULAR VOLUME 92.9 fl (80.0-96.0); MONO # 0.6 10^3/uL (0.0-0.8); MONO % 8.6 % (2.0-8.0); NEUTROPHILS # 4.9 10^3/uL (1.5-8.5); NEUTROPHILS % 69.4 % (36.0-66.0); PLATELET COUNT, AUTOMATED 233 10^3/uL (150-450); RED BLOOD COUNT 4.76 10^6/uL (4.30-6.10); WHITE BLOOD COUNT 7.1 10^3/uL (4.0-10.0)
[2023-12-20 09:22] LABS: PSA SCREENING 0.04 NG/ML (< 4.00)
[2023-12-20 09:24] LABS: ALBUMIN 3.8 G/DL (3.2-5.2); ALKALINE PHOSPHATASE 59 U/L (46-116); ALT/SGPT 44 U/L (7.0-40); AST/SGOT 25 U/L (<34); BILIRUBIN,TOTAL 1.2 MG/DL (0.3-1.2); BLOOD UREA NITROGEN 14 MG/DL (9-23); CALCIUM LEVEL 9.2 MG/DL (8.3-10.6); CARBON DIOXIDE LEVEL 28 MMOL/L (20-31); CHLORIDE LEVEL 103 MMOL/L (98-107); CHOLESTEROL LEVEL 172 MG/DL (<200); CHOLESTEROL RISK RATIO 3.58 (<5); CREATININE FOR GFR 0.85 MG/DL (0.70-1.30); GLOMERULAR FILTRATION RATE > 60.0 (>49); GLUCOSE, FASTING 123 MG/DL (74-106); SODIUM LEVEL 135 MMOL/L (136-145); TOTAL PROTEIN 6.7 G/DL (5.7-8.2); TRIGLYCERIDES LEVEL 65 MG/DL (<150)
[2023-12-20 09:26] LABS: THYROID STIMULATING HORMONE 3.842 uIU/ML (0.55-4.78)
[2023-12-20 09:27] LABS: HEMOGLOBIN A1c 5.3 % (4.0-6.0)
== END ==
LOC: M LAB 08:22
PROVIDERS: ATTEND Internal Medicine
DX: I11.9 Hypertensive heart disease without heart failure (principal)

== ENCOUNTER 2024-04-16 09:19 | Day surgery (SDC) | payer BC ==
[~2024-04-16] VITALS: Ht 180.3 cm; Wt 117.9 kg
[2024-04-16] MEDS ORDERED: LIDOCAINE 2% 100MG/5ML SDV (FOR ANES.) As Ordered ONE (09:36)
[2024-04-16] MEDS ORDERED: propofoL 200 MG/20 ML VIAL As Ordered ONE (09:36)
[2024-04-16] MEDS ORDERED: dexmedeTOMIDine (4MCG/ML)200MCG/50ML BTL (PRECEDEX) As Ordered ONE (09:37)
[2024-04-16 10:34] VITALS: TEMP 98.7
[2024-04-16 10:50] VITALS: BP 129/83; O2SAT 95
== END 2024-04-16 10:58 | disposition home or self-care (01) ==
LOC: M OPP 09:19
PROVIDERS: ATTEND Internal Medicine Gastroenterology
DX: Z12.11 Encounter for screening for malignant neoplasm of colon (principal); Z86.0100 Personal history of colon polyps, unspecified; K64.0 First degree hemorrhoids; K57.30 Diverticulosis of large intestine without perforation or abscess without bleeding

== ENCOUNTER → 2024-12-21 | Outpatient (CLI) | payer BC ==
[2024-12-21 08:16] LABS: BASO # 0.0 10^3/uL (0.0-0.2); BASO % 0.4 % (0.0-1.0); EOS # 0.4 10^3/uL (0.0-0.5); EOS % 4.9 % (0.0-3.0); LYMPH # 1.2 10^3/uL (1.5-5.0); LYMPH % 16.3 % (24.0-44.0); MONO # 0.6 10^3/uL (0.0-0.8); MONO % 8.3 % (2.0-8.0); NEUTROPHILS # 5.2 10^3/uL (1.5-8.5); NEUTROPHILS % 69.6 % (36.0-66.0); PLATELET COUNT, AUTOMATED 222 10^3/uL (150-450)
[2024-12-21 08:50] LABS: ALT/SGPT 40 U/L (7.0-40); AST/SGOT 29 U/L (<34); CALCIUM LEVEL 8.9 MG/DL (8.3-10.6); CARBON DIOXIDE LEVEL 26 MMOL/L (20-31); CHLORIDE LEVEL 101 MMOL/L (98-107); CHOLESTEROL LEVEL 162 MG/DL (<200); CHOLESTEROL RISK RATIO 3.24 (<5); CREATININE FOR GFR 0.88 MG/DL (0.70-1.30); GLOMERULAR FILTRATION RATE > 90.0 (>49); LDL CHOLESTEROL 98.2 MG/DL (<100); NON-HDL-C 112.0 MG/DL; POTASSIUM SERUM 4.9 MMOL/L (3.5-5.1); SODIUM LEVEL 138 MMOL/L (136-145); TRIGLYCERIDES LEVEL 69 MG/DL (<150)
[2024-12-21 08:52] LABS: FREE T4 1.08 NG/DL (0.89-1.76)
== END ==
LOC: M LAB 07:44
PROVIDERS: ATTEND Internal Medicine
DX: K76.0 Fatty (change of) liver, not elsewhere classified (principal)